=== PATIENT | female | born 1940 | race Caucasian/White ===

== ENCOUNTER 2016-06-06 17:51 | Inpatient (IN) | payer MEDICARE ==
[~2016-06-06] VITALS: Ht 162.6 cm; Wt 93.6 kg
--- NOTE | ~2016-06-06 | EKG ---
[place], [place] ELECTROCARDIOGRAM REPORT NAME: CARROLL FOY UNIT #: [id number] ROOM: 529 DOCTOR: JOANN WHALEY MD BIRTHDATE: [birth year] DOS: 06/06/2016 TIME: 19:57. FINDINGS: 1. Sinus rhythm at rate of 85. 2. Baseline artifact. 3. Otherwise, normal EKG. JOANN WHALEY MD CM:EKGRPT:ELECTROCARDIOGRAM REPORT [id number] JOANN WHALEY MD
[~2016-06-06 17:51] MED LIST: ADVAIR 250/501 EA INH; ANTIVERT25 MG PO; ARICEPT10 M1 PO; ATIVAN1 MG PO; ATROVENT I0.5 MG/2.1; CIPRO500 MG PO; COMBIVENT1 ARO IH; DOXYCYCLINE100 M3 PO; FISH OIL 1,0001 EAC1 PO; K-DUR 20MEQ20 MEQ PO; LASIX20 MG PO; LASIX40 MG PO; LIPITOR20 MG PO; LIPITOR40 MG PO; LOPRESSOR25 MG PO; LUTEIN6 M2 PO; MEDROL DOSEPAK4 MG PO; METFORMIN500 MG PO; NAMENDA5 M1 PO; OMEPRAZOLE20 M2 PO; POTASSIUM CHLO10 MEQ PO; PREDNICOT10 MG PO; REQUIP0.5 MG PO; REQUIP2 MG PO; SYNTHROID0.025 MG PO; Synthroid,Lev150 MCG PO; TEMAZEPAM15 MG PO; TRICOR54 MG PO; TRICOR67 MG PO; VICODIN 5/500 505 MG PO; ZANTAC150 MG PO; ZITHROMAX250 MG PO
[2016-06-06 18:12] VITALS: BP 135/70
[2016-06-06] MEDS ORDERED: LOPRESSOR50 M1 PO (18:21)
[2016-06-06] MEDS ORDERED: RISPERDAL1 M1 PO (18:23)
[2016-06-06 20:03] LABS: BASO # 0.1 10*3/uL (0.0-0.1); BASO % 0.4 % (0.0-1.0); EOS # 0.2 10*3/uL (0.0-0.4); EOS % 2.1 % (1.0-4.0); HEMATOCRIT 36.1 % (37.0-47.0); HEMOGLOBIN 11.3 g/dl (12.0-16.0); LYMPH # 2.4 10*3/uL (1.3-4.4); LYMPH % 21.4 % (27.0-41.0); MEAN CORPUSCULAR HGB 27.2 pg (27.0-31.0); MEAN CORPUSCULAR HGB CONC 31.3 g/dl (33.0-37.0); MEAN PLATELET VOLUME 10.9 fl (9.6-12.3); MONO # 0.9 10*3/uL (0.1-1.0); MONO % 7.9 % (3.0-9.0); NEUT # 7.6 10*3/uL (2.3-7.9); NEUT % 67.8 % (47.0-73.0); PLATELET COUNT AUTOMATED 245 10*3/uL (130-400); RED BLOOD COUNT 4.15 10*6/uL (4.10-5.10); RED CELL DISTRI WIDTH 14.5 % (0-14.5); WHITE BLOOD COUNT 11.2 10*3/uL (4.8-10.8)
[2016-06-06 20:18] LABS: INTERNATIONAL NORM RATIO 1.1 (2.0-3.5); PROTHROMBIN TIME 11.6 SECONDS (9.0-12.4)
[2016-06-06 20:20] VITALS: BP 128/54
[2016-06-06 20:23] LABS: ALBUMIN 3.1 gm/dl (3.1-4.5); ALKALINE PHOSPHATASE 101 U/L (45-117); BILIRUBIN, TOTAL 0.4 mg/dl (0.2-1.0); BUN 24 mg/dl (7-24); CARBON DIOXIDE 30 mmol/L (21-32); CHLORIDE 101 mmol/L (98-107); EST GLOM FILT AFRICAN AMERICAN > 60 ml/min; GLUCOSE 90 mg/dL (65-99); MAGNESIUM 1.5 mg/dL (1.5-2.1); POTASSIUM 4.2 mmol/L (3.5-5.1); SGOT/AST 8 IU/L (3-35); SGPT/ALT 15 U/L (12-78); SODIUM 141 mmol/L (136-145); TOTAL PROTEIN 6.9 gm/dL (6.4-8.2)
[2016-06-06 20:30] LABS: TROPONIN I < 0.015 ng/ml (<0.045)
[2016-06-07] VITALS: BP 115/57; BP 134/67
[2016-06-07 00:46] LABS: CKMB 0.9 ng/ml (0.5-3.6); CPK 31 U/L (26-192)
[2016-06-07 00:47] LABS: TROPONIN I < 0.015 ng/ml (<0.045)
[2016-06-07 06:28] LABS: BASO % 0.3 % (0.0-1.0); EOS % 0.3 % (1.0-4.0); HEMATOCRIT 37.8 % (37.0-47.0); HEMOGLOBIN 11.7 g/dl (12.0-16.0); IG # 0.1 10*3/uL (0.0-0.1); LYMPH % 10.5 % (27.0-41.0); MEAN CELL VOLUME 86.3 fl (81.0-99.0); MEAN CORPUSCULAR HGB 26.7 pg (27.0-31.0); MEAN PLATELET VOLUME 11.3 fl (9.6-12.3); MONO # 0.1 10*3/uL (0.1-1.0); MONO % 1.4 % (3.0-9.0); NEUT # 8.1 10*3/uL (2.3-7.9); NEUT % 86.9 % (47.0-73.0); PLATELET COUNT AUTOMATED 248 10*3/uL (130-400); RED BLOOD COUNT 4.38 10*6/uL (4.10-5.10); RED CELL DISTRI WIDTH 14.6 % (0-14.5); WHITE BLOOD COUNT 9.3 10*3/uL (4.8-10.8)
[2016-06-07 06:43] LABS: CKMB 1.3 ng/ml (0.5-3.6); CPK 27 U/L (26-192)
[2016-06-07 06:45] LABS: TROPONIN I < 0.015 ng/ml (<0.045)
[2016-06-07 06:46] LABS: HEMOGLOBIN A1c 6.2 % (4.8-5.6)
[2016-06-07 06:57] LABS: INTERNATIONAL NORM RATIO 1.1 (2.0-3.5); PROTHROMBIN TIME 11.7 SECONDS (9.0-12.4)
[2016-06-07 07:01] LABS: ALBUMIN 3.1 gm/dl (3.1-4.5); BUN 19 mg/dl (7-24); CARBON DIOXIDE 29 mmol/L (21-32); CHLORIDE 103 mmol/L (98-107); EST GLOM FILT AFRICAN AMERICAN > 60 ml/min; GLUCOSE 137 mg/dL (65-99); MAGNESIUM 1.6 mg/dL (1.5-2.1); POTASSIUM 3.8 mmol/L (3.5-5.1); SGPT/ALT 13 U/L (12-78); SODIUM 141 mmol/L (136-145)
[2016-06-07 07:09] LABS: ALKALINE PHOSPHATASE 104 U/L (45-117); BILIRUBIN, TOTAL 0.6 mg/dl (0.2-1.0); CHOLESTEROL 139 mg/dL (<200); FREE T4 1.62 ng/dl (0.76-1.46); HDL CHOLESTEROL 48 mg/dl (40-60); LDL CHOLESTEROL 71 mg/dL (9-159); PHOSPHOROUS 3.5 mg/dL (2.5-4.9); SGOT/AST 7 IU/L (3-35); THYROID STIM HORMONE (HS) 0.573 uIU/ml (0.358-4.75); TOTAL PROTEIN 7.1 gm/dL (6.4-8.2); TRIGLYCERIDES 101 mg/dl (<150); VLDL CHOLESTEROL 20 mg/dL (6-40)
[2016-06-07 07:34] LABS: VITAMIN D, 25-HYDROXY 53.7 ng/mL (30-100)
[2016-06-07 07:35] LABS: FOLIC ACID 8.03 ng/mL (>5.38)
[2016-06-07 08:00] VITALS: BP 130/62
[2016-06-07 12:00] VITALS: BP 139/72
[2016-06-07 12:29] LABS: CKMB 0.9 ng/ml (0.5-3.6); CPK 30 U/L (26-192); TROPONIN I < 0.015 ng/ml (<0.045)
[2016-06-07 16:00] VITALS: BP 117/86
[2016-06-07 16:27] LABS: BILIRUBIN NEGATIVE (NEGATIVE); BLOOD TRACE-INTACT (NEGATIVE); CLARITY SL CLOUDY (CLEAR); COLOR YELLOW (YELLOW); GLUCOSE 1+ (NEGATIVE); KETONE NEGATIVE (NEGATIVE); LEUKO ESTERASE TRACE (NEGATIVE); NITRITE NEGATIVE (NEGATIVE); PH 5.5 (5.0-9.0); PROTEIN NEGATIVE (NEGATIVE); SPECIFIC GRAVITY 1.025 (1.005-1.030); UROBILINOGEN 0.2 E.U./dl (0.2-1.0)
[2016-06-07 16:32] LABS: BACTERIA 2+; RBC 0-2 rbc/hpf (0-2); URINE REFLEX COMMENT YES (NO)
[2016-06-07 20:00] VITALS: BP 151/81
[2016-06-08] VITALS: BP 125/67
[2016-06-08 06:57] LABS: BASO % 0.1 % (0.0-1.0); HEMATOCRIT 38.2 % (37.0-47.0); HEMOGLOBIN 12.2 g/dl (12.0-16.0); IG # 0.1 10*3/uL (0.0-0.1); LYMPH # 1.4 10*3/uL (1.3-4.4); LYMPH % 9.7 % (27.0-41.0); MEAN CELL VOLUME 84.9 fl (81.0-99.0); MEAN CORPUSCULAR HGB 27.1 pg (27.0-31.0); MEAN CORPUSCULAR HGB CONC 31.9 g/dl (33.0-37.0); MEAN PLATELET VOLUME 11.3 fl (9.6-12.3); MONO # 0.6 10*3/uL (0.1-1.0); MONO % 4.4 % (3.0-9.0); NEUT # 12.1 10*3/uL (2.3-7.9); NEUT % 85.4 % (47.0-73.0); PLATELET COUNT AUTOMATED 270 10*3/uL (130-400); RED CELL DISTRI WIDTH 14.5 % (0-14.5); WHITE BLOOD COUNT 14.2 10*3/uL (4.8-10.8)
[2016-06-08 07:10] LABS: BUN 17 mg/dl (7-24); CARBON DIOXIDE 27 mmol/L (21-32); CHLORIDE 105 mmol/L (98-107); EST GLOM FILT AFRICAN AMERICAN > 60 ml/min; GLUCOSE 145 mg/dL (65-99); MAGNESIUM 1.7 mg/dL (1.5-2.1); PHOSPHOROUS 3.7 mg/dL (2.5-4.9); POTASSIUM 4.2 mmol/L (3.5-5.1); SODIUM 141 mmol/L (136-145)
[2016-06-08 08:00] VITALS: BP 128/61
[2016-06-08 12:00] VITALS: BP 129/63
[2016-06-08 15:54] VITALS: BP 151/61
[2016-06-08 20:00] VITALS: BP 155/65
[2016-06-08 20:52] VITALS: BP 124/62
[2016-06-09] VITALS: BP 132/56
[2016-06-09 08:06] VITALS: BP 153/72
[2016-06-09 12:19] VITALS: BP 106/61
[2016-06-09] MEDS ORDERED: PREDNISONE50 MG PO (15:23)
[2016-06-09] MEDS ORDERED: LEVAQUIN500 M2 PO (15:23)
[2016-06-09] MEDS ORDERED: DOXYCYCLINE100 MG PO (15:25)
[2016-06-09 16:00] VITALS: BP 133/59
== END 2016-06-09 17:21 | disposition home or self-care (01) | DRG 871 ==
LOC: 5E 17:51
PROVIDERS: Hospitalist; Internal Medicine
DX: A41.9 Sepsis, unspecified organism (principal); J96.20 Acute and chronic respiratory failure, unspecified whether with hypoxia or hypercapnia; E44.0 Moderate protein-calorie malnutrition; J44.1 Chronic obstructive pulmonary disease with (acute) exacerbation; L03.116 Cellulitis of left lower limb; I50.9 Heart failure, unspecified; F03.90 Unspecified dementia, unspecified severity, without behavioral disturbance, psychotic disturbance, mood disturbance, and anxiety; E03.9 Hypothyroidism, unspecified; K21.9 Gastro-esophageal reflux disease without esophagitis; E78.5 Hyperlipidemia, unspecified; H91.93 Unspecified hearing loss, bilateral; Z98.49 Cataract extraction status, unspecified eye; Z87.891 Personal history of nicotine dependence; Z80.0 Family history of malignant neoplasm of digestive organs; Z88.2 Allergy status to sulfonamides; Z79.84 Long term (current) use of oral hypoglycemic drugs; Z79.899 Other long term (current) drug therapy; Z68.35 Body mass index [BMI] 35.0-35.9, adult

== ENCOUNTER 2016-07-10 17:23 | Inpatient (IN) | payer MEDICARE ==
[~2016-07-10] VITALS: Ht 154.9 cm; Wt 87.3 kg
--- NOTE | ~2016-07-10 | PR ---
[place], [place] PROGRESS NOTE NAME: CARROLL FOY [facility] #: [id number] UNIT #: [id number] ROOM: 403 DOCTOR: POONAM GRIFFIN MD,SADIE BIRTHDATE: [birth year] DOS: 07/13/2016 SUBJECTIVE: She was complaining of shortness of breath this morning, but otherwise doing better. The ultrasound of the lower extremity to rule out possibility of bilateral deep venous thrombosis. She was continued on corticosteroids, bronchodilators, and the treatment plan and management. OBJECTIVE: VITAL SIGNS: Shows normal temperature, respiratory rate 20, heart rate 99, blood pressure 151/85, pulse ox saturation on 2 liters nasal cannula 96% saturation. HEENT: Examination shows chronic senile hard of hearing and hearing loss of the patient. LUNGS: Chest auscultation of the patient was noted as moderate reduction in the breath sounds. There was no wheezing at this time. ABDOMEN: Soft, nontender. EXTREMITIES: Shows resolving edema of the lower extremities. LABORATORY DATA: BMP this morning, BUN 39, creatinine was normal, glucose 137. CO2 36. IMPRESSION: 1. The patient with resolving acute cor pulmonale of the patient with acute exacerbation of COPD with acute tracheobronchitis. 2. History of nicotine abuse. PLAN OF TREATMENT: No changes in plan of management. The patient might be considered for discharge to long term facility tomorrow. In the meantime, continue the present treatment, plan of management without any changes. Usual care. All other supportive therapy care and management. SADIE LEVIN MD CM:PNTRANS [id number] SADIE GRIFFIN MD 07/14/16309 interface
--- NOTE | ~2016-07-10 | PR ---
[place], [place] PROGRESS NOTE NAME: CARROLL FOY UNIT #: [id number] ROOM: 403 DOCTOR: SADIE HEREDIA MD BIRTHDATE: [birth year] DOS: 07/14/2016 SUBJECTIVE: She has been showing continued gradual reduction and improvement in the respiratory status. She has not been noted any symptoms of chest pain or any abdominal pain. The edema of the lower extremity has been resolving. Cough, shortness breath and the other symptoms of the patient was resolving progressively as well. OBJECTIVE: VITAL SIGNS: For the patient which has been recorded shows the temperature of the patient noted as normal. The respiratory rate of the patient recorded at 22, heart rate 92, blood pressure 127/54-139/75. Intake of the patient 1010, the output 856 mL. Pulse oxygen saturation of the patient recorded on 3 liters nasal cannula 94% saturation. HEENT: Shows head was atraumatic. Eyes nonicterus. NECK: Supple. CARDIOVASCULAR SYSTEM: S1, S2 audible. LUNGS: The patient was noted without any wheezing or crackles at the present time. ABDOMEN: Soft, nontender. The bowel sounds are present. EXTREMITIES: The patient shows continued resolving edema of the lower extremities. LABORATORY DATA: The BMP of patient this morning showed BUN 52, creatinine 1.03. Sodium 167. Glucose 167. Carbon dioxide 33. IMPRESSION: Progressive resolution improvement of the respiratory status. The patient was continued with resolving acute exacerbation of chronic obstructive pulmonary disease, acute cor pulmonale progressively as well. PLAN OF TREATMENT: The patient has been currently considered for discharge to the [facility] for the patient. Other treatment plan of management to be continued as well. Usual care. [place], [place] PROGRESS NOTE NAME: CARROLL FOY UNIT #: [id number] ROOM: 403 DOCTOR: SADIE HEREDIA MD BIRTHDATE: [birth year] SADIE LEVIN MD CM:PNTRANS [phone] [id number] SADIE GRIFFIN MD 07/14/162120 interface
--- NOTE | ~2016-07-10 | PR ---
[place], [place] PROGRESS NOTE NAME: CARROLL FOY [facility] #: [id number] UNIT #: [id number] ROOM: 403 DOCTOR: POONAM GRIFFIN MD,SADIE BIRTHDATE: [birth year] DOS: 07/12/2016 PULMONARY PROGRESS NOTE SUBJECTIVE: She continues to show reduction in the respiratory symptoms has been noted with resolution of audible wheezing. Shortness of breath for the patient has been decreasing. Edema of the lower extremity has been resolving, but not completely improved. The patient is getting physical therapy. OBJECTIVE: VITAL SIGNS: Showed normal temperature, respiratory rate 18, heart rate 97, blood pressure 110/67. Intake for the patient was 1800 mL, output 1200 mL recorded without Porter catheter. Pulse ox saturation on 2 liters nasal cannula 93% saturation was noted. HEENT: Examination shows no acute change. CARDIOVASCULAR SYSTEM: S1, S2 audible. LUNGS: Shows moderate decreased breath sounds and improvement in air entry of the lungs. ABDOMEN: Soft, nontender. EXTREMITIES: Shows reduction of the edema of the right lower extremity, still noted with vmyn-rz-[id number] edema of the left lower extremity. IMPRESSION: The patient with resolving acute exacerbation of chronic obstructive pulmonary disease with acute tracheobronchitis as well as suspected acute cor pulmonale; however, edema of the lower extremity noted asymmetrical with partial improvement noted on the left side of the lower extremity. PLAN OF TREATMENT: Ordered the venous duplex for this patient to rule out deep venous thrombosis of the lower extremities. In the meantime, continue diuretics, bronchodilators, dose of Solu-Medrol will be decreased. Continue other previous treatment, plan and management as previously. Usual care. SADIE LEVIN MD CM:PNTRANS [phone] SAIDE GRIFFIN MD 07/12/162245 interface
--- NOTE | ~2016-07-10 | CON ---
[place], [place] REPORT OF CONSULTATION NAME: CARROLL FOY [facility] #: [id number] UNIT #: [id number] ROOM: 403 DOCTOR: POONAM GRIFFIN MDSADIE BIRTHDATE: [birth year] DOS: 07/11/2016 REASON FOR CONSULTATION: To assess the patient's symptoms of shortness of breath. REQUESTING PHYSICIAN: Hospitalist services. HISTORY OF PRESENT ILLNESS: A 75-year-old white female who was seen in my office yesterday for the first time. The patient was in the office by her daughter. The patient noted with significant hard of hearing. She reported symptoms of having progressive increased shortness of breath with nonproductive cough. The patient had feeling of lightheadedness. The patient had edema of the lower extremities. The symptoms have been noted gradually worsening for the past several days. The patient has been hospitalized in 05/2016 and treated for respiratory problems and released home. She was getting home physical therapy. The patient stated the symptoms have not been improving. The patient at this time was actually getting worse, she could not lay flat. The patient also noted symptoms of orthopnea. There were no symptoms of chest pain, chest tightness was described. The coughing has been noted mild to moderately. The cough that the patient was noted was worsening in the evening. She denies symptoms of hemoptysis. REVIEW OF SYSTEMS: CONSTITUTIONAL: She does complain of symptoms of fatigue and tiredness. Denies fever or chills. EYES: Denies burning, redness or tenderness. EARS, NOSE, AND THROAT SYMPTOMS: Chronic pain and hearing loss were noted. The patient refused to use hearing aids. Denies symptoms of postnasal drainage, nasal congestion or epistaxis. CARDIOVASCULAR: Denies any anginal pain, palpitations or angina. She was noted with intermittent edema of the lower extremities. GASTROINTESTINAL: History of chronic obesity was noted without any symptoms of hematemesis, melena, dysphagia or hematochezia. GENITOURINARY: Denies dysuria, suprapubic pain, hematuria or urinary incontinence. SKIN: Denies lesions or rashes. MUSCULOSKELETAL: Denies acute joint pain, redness or tenderness. CENTRAL NERVOUS SYSTEM: Denies dizziness, headache, diplopia or syncopal episodes. Remaining systems were reviewed with the patient, they were noted all negative. PAST MEDICAL HISTORY: 1. Centrilobular emphysema. 2. Vitamin D deficiency. 3. Moderate obesity with the patient's BMI of 38. 4. Chronic senile hearing loss. 5. Alzheimer dementia. 6. History of gastroesophageal reflux. 7. Restless leg syndrome. 8. Hypothyroidism. [place], [place] REPORT OF CONSULTATION [facility] [id number] UNIT #: [id number] ROOM: 403 DOCTOR: SADIE HEREDIA MD BIRTHDATE: [birth year] SOCIAL HISTORY: The patient is , has 3 children. She has been noted to have heavy tobacco use and smoked up to 3 packs of cigarettes a day, started at the age of [age] years old. She has not been smoking cigarettes since 05/2016. Denies history of alcohol use or any illicit drug use. FAMILY HISTORY: The patient's father at the age of 8383 years old from complication of colon cancer. The mother at the age of 8888 years old from old age. CURRENT ADMINISTERED MEDICATIONS: Noted as use of IV Lasix, vitamin D, Namenda, potassium chloride, levothyroxine, metformin, Risperdal, metoprolol tartrate, Requip, Mucinex, IV Solu-Medrol, DuoNeb, Dulera, Levaquin and other p.r.n. medications. ALLERGIES: THE DRUG ALLERGY HISTORY WAS NOTED ALLERGY TO SULFA DRUGS. THE PATIENT STATED SIDE EFFECTS, IT MADE HER CRAZY. PHYSICAL EXAMINATION: GENERAL: A 75-year-old female, who has been currently noted awake and alert without any distress. VITAL SIGNS: Height of 5 feet 1 inch, weight of 201 pounds, BMI of 37.8. Vital signs show a normal temperature, respiratory rate 20-18, heart rate 73-106, blood pressure 147/52-134/67. The intake of patient 630, output 200 mL recorded. Pulse oxygen saturation on room air was 92% on 2 liters nasal cannula, 96% saturation. HEENT: Head was atraumatic. Eyes nonicterus. NECK: Supple and obese. CARDIOVASCULAR: S1, S2 audible. LUNGS: The patient was noted without any crackles. Decreased breath sounds are noted diminished bilaterally, expiratory wheezing. ABDOMEN: Soft, obese, nontender. EXTREMITIES: Shows 1+ pitting edema this morning of assessment. LABORATORY DATA: CBC, 07/10/2016 yesterday were noted essentially normal CBC. The PT/PTT on 07/10/2016 was normal. CMP, 07/10/2016, BUN 26, creatinine was normal, glucose 184. The liver function tests were normal. TSH was normal. Chest x-ray that was done in my office yesterday shows hyperinflation changes of COPD without any acute pulmonary infiltration. IMPRESSION: 1. The patient with recurrent acute exacerbation. 2. Chronic obstructive pulmonary disease. 3. Acute tracheobronchitis with possibility of acute ____ edema of the lower extremities. 4. History of chronic moderate obesity. 5. Senile hearing loss. 6. Muscle deconditioning secondary to ongoing acute medical illnesses. PLAN OF TREATMENT: The patient will be continued on IV diuretics. The [place], [place] REPORT OF CONSULTATION NAME: CARROLL FOY UNIT #: [id number] ROOM: 403 DOCTOR: SADIE HEREDIA MD BIRTHDATE: [birth year] echocardiogram could be repeated for assessment of the patient's right ventricular function. Continue current dose of IV Solu-Medrol and bronchodilators administration. Antibiotics to be continued as well. Usual care. Further treatment changes will be made for the patient based on progression of the illness. Physical therapy and occupation therapy consultation has been ordered as well. Other plan of management is in progress. Usual care. The patient has been encouraged with continued abstinence from tobacco use. SADIE LEVIN MD CM:CONSTR:REPORT OF CONSULTATION 1211 07/12/16 1438 interface
--- NOTE | ~2016-07-10 | PR ---
[place], [place] PROGRESS NOTE NAME: CARROLL FOY [facility] #: [id number] UNIT #: [id number] ROOM: 403 DOCTOR: POONAM GRIFFIN MD,SADIE BIRTHDATE: [birth year] DOS: 07/15/2016 SUBJECTIVE: She has been comfortably resting on the bed without any acute distress. OBJECTIVE: VITAL SIGNS: Shows normal temperature, respiratory rate 20, heart rate 94, blood pressure 129/71. Vital signs of the patient which were recorded showed the temperature of the patient noted as normal. The respiratory rate of the patient recorded as 20, heart rate 94, blood pressure 129/71. Pulse oxygen saturation on 3 liters nasal cannula 96% saturation. HEENT: No new change. CARDIOVASCULAR: S1, S2 audible. LUNGS: The patient shows no wheezing or crackles. ABDOMEN: Soft, nontender. EXTREMITIES: Shows resolution of edema. LABORATORY DATA: BMP today, sodium 135, BUN 53, creatinine was normal. IMPRESSION: Stable respiratory status was noted at the present time with resolving acute exacerbation of chronic obstructive pulmonary disease, acute tracheobronchitis progressively. PLAN OF TREATMENT: No changes in plan of management. Continue the patient on current therapy as previously. Usual care. Supportive plan and management and care. SADIE LEVIN MD CM:PNTRANS 1624 [id number] SADIE GRIFFIN MD 07/16/16 0514 interface
[~2016-07-10 17:23] MED LIST changes: +DOXYCYCLINE100 MG PO; +LEVAQUIN500 M2 PO; +LOPRESSOR50 M1 PO; +PREDNISONE50 MG PO; +RISPERDAL1 M1 PO
[2016-07-10 18:00] VITALS: BP 147/52
[2016-07-10 18:08] LABS: BASO % 0.4 % (0.0-1.0); EOS # 0.3 10*3/uL (0.0-0.4); EOS % 2.7 % (1.0-4.0); HEMATOCRIT 39.4 % (37.0-47.0); HEMOGLOBIN 12.4 g/dl (12.0-16.0); LYMPH # 1.9 10*3/uL (1.3-4.4); LYMPH % 20.4 % (27.0-41.0); MEAN CELL VOLUME 86.8 fl (81.0-99.0); MEAN CORPUSCULAR HGB 27.3 pg (27.0-31.0); MEAN CORPUSCULAR HGB CONC 31.5 g/dl (33.0-37.0); MEAN PLATELET VOLUME 11.3 fl (9.6-12.3); MONO # 0.6 10*3/uL (0.1-1.0); MONO % 6.1 % (3.0-9.0); NEUT # 6.6 10*3/uL (2.3-7.9); PLATELET COUNT AUTOMATED 264 10*3/uL (130-400); RED BLOOD COUNT 4.54 10*6/uL (4.10-5.10); RED CELL DISTRI WIDTH 15.7 % (0-14.5); WHITE BLOOD COUNT 9.4 10*3/uL (4.8-10.8)
[2016-07-10 18:17] LABS: PROTHROMBIN TIME 11.1 SECONDS (9.0-12.4)
[2016-07-10 18:26] LABS: ALBUMIN 3.1 gm/dl (3.1-4.5); ALKALINE PHOSPHATASE 103 U/L (45-117); BILIRUBIN, TOTAL 0.4 mg/dl (0.2-1.0); BUN 26 mg/dl (7-24); CARBON DIOXIDE 27 mmol/L (21-32); CHLORIDE 104 mmol/L (98-107); CHOLESTEROL 149 mg/dL (<200); EST GLOM FILT AFRICAN AMERICAN > 60 ml/min; GLUCOSE 184 mg/dL (65-99); HDL CHOLESTEROL 50 mg/dl (40-60); LDL CHOLESTEROL 52 mg/dL (9-159); MAGNESIUM 1.4 mg/dL (1.5-2.1); PHOSPHOROUS 2.6 mg/dL (2.5-4.9); POTASSIUM 4.1 mmol/L (3.5-5.1); SGOT/AST 13 IU/L (3-35); SGPT/ALT 16 U/L (12-78); SODIUM 142 mmol/L (136-145); TOTAL PROTEIN 6.9 gm/dL (6.4-8.2); TRIGLYCERIDES 236 mg/dl (<150); VLDL CHOLESTEROL 47 mg/dL (6-40)
[2016-07-10 18:29] LABS: HEMOGLOBIN A1c 6.5 % (4.8-5.6)
[2016-07-10 18:30] LABS: FREE T4 1.39 ng/dl (0.76-1.46)
[2016-07-10 18:49] LABS: FOLIC ACID 9.5 ng/mL (>5.38); VITAMIN D, 25-HYDROXY 39.1 ng/mL (30-100)
[2016-07-10] MEDS ORDERED: ATROVENT I0.5 MG/2.1 INH (18:52)
[2016-07-10] MEDS ORDERED: VITAMIN D5000 I3 PO (18:53)
[2016-07-10] MEDS ORDERED: COMBIVENT RESPIM4 GM INH (18:53)
[2016-07-10] MEDS ORDERED: GOOD NEIGHBOR150 MG PO (18:53)
[2016-07-10] MEDS ORDERED: ADVAIR 250/501 EA INH (18:54)
[2016-07-10 20:00] VITALS: BP 135/135; BP 135/75
[2016-07-11 00:33] VITALS: BP 149/84
[2016-07-11 08:00] VITALS: BP 134/67
[2016-07-11 12:00] VITALS: BP 146/69
[2016-07-11 16:00] VITALS: BP 129/70
[2016-07-11 20:00] VITALS: BP 130/69
[2016-07-11 23:59] VITALS: BP 134/80
[2016-07-12 08:00] VITALS: BP 109/67
[2016-07-12 12:00] VITALS: BP 110/67
[2016-07-12 16:00] VITALS: BP 114/58
[2016-07-12 20:03] VITALS: BP 142/68
[2016-07-13] VITALS: BP 155/84
[2016-07-13 06:25] LABS: BUN 39 mg/dl (7-24); CARBON DIOXIDE 36 mmol/L (21-32); CHLORIDE 97 mmol/L (98-107); EST GLOM FILT AFRICAN AMERICAN > 60 ml/min; GLUCOSE 137 mg/dL (65-99); MAGNESIUM 1.5 mg/dL (1.5-2.1); POTASSIUM 4.4 mmol/L (3.5-5.1); SODIUM 137 mmol/L (136-145)
[2016-07-13 08:00] VITALS: BP 125/55
[2016-07-13 12:00] VITALS: BP 151/85
[2016-07-13 16:00] VITALS: BP 134/62
[2016-07-13 20:00] VITALS: BP 150/85
[2016-07-14] VITALS: BP 131/77
[2016-07-14 08:00] VITALS: BP 139/75
[2016-07-14 08:35] LABS: BUN 52 mg/dl (7-24); CARBON DIOXIDE 33 mmol/L (21-32); CHLORIDE 96 mmol/L (98-107); EST GLOM FILT AFRICAN AMERICAN > 60 ml/min; GLUCOSE 167 mg/dL (65-99); POTASSIUM 4.8 mmol/L (3.5-5.1); SODIUM 137 mmol/L (136-145)
[2016-07-14 12:00] VITALS: BP 127/54
[2016-07-14] MEDS ORDERED: MUCINEX ER600 MG PO (15:41)
[2016-07-14] MEDS ORDERED: PREDNISONE10 MG PO (15:41)
[2016-07-14] MEDS ORDERED: LEVAQUIN500 M2 PO (15:41)
[2016-07-14 16:00] VITALS: BP 142/78
[2016-07-14 20:00] VITALS: BP 145/66
[2016-07-15] VITALS: BP 151/86
[2016-07-15 07:38] LABS: BUN 53 mg/dl (7-24); CARBON DIOXIDE 32 mmol/L (21-32); CHLORIDE 95 mmol/L (98-107); EST GLOM FILT AFRICAN AMERICAN > 60 ml/min; GLUCOSE 152 mg/dL (65-99); POTASSIUM 4.6 mmol/L (3.5-5.1); SODIUM 135 mmol/L (136-145)
[2016-07-15 08:00] VITALS: BP 155/69
[2016-07-15 12:00] VITALS: BP 129/71
== END 2016-07-15 15:45 | disposition other institution (70) | DRG 190 ==
LOC: 4E 17:23
PROVIDERS: Internal Medicine; Student in an Organized Health Care Education/Training Program
DX: J44.0 Chronic obstructive pulmonary disease with (acute) lower respiratory infection (principal); J18.9 Pneumonia, unspecified organism; E44.0 Moderate protein-calorie malnutrition; I27.81 Cor pulmonale (chronic); I50.9 Heart failure, unspecified; G30.9 Alzheimer's disease, unspecified; E83.42 Hypomagnesemia; F02.80 Dementia in other diseases classified elsewhere, unspecified severity, without behavioral disturbance, psychotic disturbance, mood disturbance, and anxiety; J44.1 Chronic obstructive pulmonary disease with (acute) exacerbation; R73.9 Hyperglycemia, unspecified; E66.09 Other obesity due to excess calories; J20.9 Acute bronchitis, unspecified; H91.8X9 Other specified hearing loss, unspecified ear; E03.9 Hypothyroidism, unspecified; K21.9 Gastro-esophageal reflux disease without esophagitis; E78.5 Hyperlipidemia, unspecified; F17.200 Nicotine dependence, unspecified, uncomplicated; Z98.49 Cataract extraction status, unspecified eye; Z80.0 Family history of malignant neoplasm of digestive organs; Z88.2 Allergy status to sulfonamides; Z79.84 Long term (current) use of oral hypoglycemic drugs; Z71.6 Tobacco abuse counseling; Z79.899 Other long term (current) drug therapy; Z68.37 Body mass index [BMI] 37.0-37.9, adult

== ENCOUNTER 2016-07-16 11:42 | Inpatient (IN) | payer MEDICARE ==
[~2016-07-16] VITALS: Ht 160 cm; Wt 86.3 kg
--- NOTE | ~2016-07-16 | PR ---
[place], [place] PROGRESS NOTE NAME: CARROLL FOY [facility] #: [id number] UNIT #: [id number] ROOM: 406 DOCTOR: POONAM GRIFFIN MD,SADIE BIRTHDATE: [birth year] DOS: 07/24/2016 SUBJECTIVE: The patient stated that she has been eating food was not noted any abdominal pain. Respiratory symptoms continue to resolve. Denies symptoms of chest pain or any sputum expectoration. OBJECTIVE: VITAL SIGNS: Showed normal temperature, respiratory rate of 20, heart rate 79, blood pressure 126/66. Pulse oxygen saturation of the patient noted 2 liters nasal cannula 96% saturation. HEENT: Examination shows no acute change. NECK: Supple. CARDIOVASCULAR: S1, S2 audible. LUNGS: Shows no wheeze or crackles at the present time. ABDOMEN: Soft, nontender. IMPRESSION: 1. Resolving acute exacerbation of chronic obstructive pulmonary disease for this patient progressively patient. 2. Abdominal pain for this patient of unclear etiology but improving. 3. History of cor pulmonale. PLAN OF TREATMENT: Continue the patient's current therapy, plan of management as in progress without any changes from the pulmonary point. Discharge planning for the patient has been started at this time. SADIE LEVIN MD CM:PNTRANS 0 33 SADIE GRIFFIN MD 07/24/161933 interface
--- NOTE | ~2016-07-16 | PR ---
[place], [place] PROGRESS NOTE NAME: CARROLL FOY [facility] #: [id number] UNIT #: [id number] ROOM: 406 DOCTOR: POONAM GRIFFIN MD,SADIE BIRTHDATE: [birth year] DOS: 07/20/2016 SUBJECTIVE: She has been noted comfortably resting on the bed at this time. Denies symptoms of chest pain, coughing or any sputum expectoration. OBJECTIVE: VITAL SIGNS: Normal temperature, respiratory rate 20, heart rate 82, blood pressure 145/74. The pulse oxygen saturation of the patient noted on 3 L nasal cannula 93% saturation. HEENT: Showed no new change. NECK: Supple. CARDIOVASCULAR: S1, S2 audible. LUNGS: Noted without any wheeze or crackles at the present time. Breath sounds with [id number]-[id number] decreased bilaterally. ABDOMEN: Soft, nontender. EXTREMITIES: Shows no significant edema at this time. IMPRESSION: 1. Progressive resolution improvement in the acute exacerbation of chronic obstructive pulmonary disease, acute tracheobronchitis noted. 2. Overall debility. The patient was treated with physical therapy and occupation therapy. PLAN OF MANAGEMENT: No changes from the pulmonary standpoint. Continue current therapy. Discharge disposition per family member of the patient's preference. SADIE LEVIN MD CM:PNTRANS [id number] SADIE GRIFFIN MD 07/21/16 0543 interface
--- NOTE | ~2016-07-16 | CON ---
[place], [place] REPORT OF CONSULTATION NAME: CARROLL FOY [facility] #: [id number] UNIT #: [id number] ROOM: 406 DOCTOR: POONAM GRIFFIN MDSADIE BIRTHDATE: [birth year] DOS: 07/19/2016 REASON FOR CONSULTATION: Assess the patient for COPD. HISTORY OF PRESENT ILLNESS: A 75-year-old white male who had been discharged from this hospital after completion of the medical management of acute exacerbation of COPD and acute bronchitis to the nursing home facility. The patient was discharged from the nursing home facility on 07/16/2016. She returned back to the hospital as the patient was sent from the nursing facility, the patient has been noted with symptoms of abdominal pain. The abdominal pain has been noted worsening for the patient in the lower quadrants. The patient was also known with previous coughing and sputum expectoration intermittently as well as shortness of breath. She was assessed in the Emergency Room and suspected possibly urinary tract infection and other problems and also continued on treatment for acute exacerbation of COPD. The patient has not been noted symptoms of chest pain at this time. The coughing has been noted mild for this patient with small amount of sputum expectoration. Shortness of breath was noted absent with the patient at rest. There were no symptoms of wheezing described by the patient or any chest pain. REVIEW OF SYSTEMS: CONSTITUTIONAL: Fatigue and tiredness described for the patient, which is improving without any fever or chills. EYES: Denies any burning, redness or tenderness. EARS, NOSE, THROAT SYMPTOMS: No sore throat, hoarseness, otalgia, postnasal drainage or epistaxis. The patient has been noted with chronic moderate senile hearing loss. CARDIOVASCULAR: The patient denies any anginal pain, edema or pain of the lower extremities. GASTROINTESTINAL: Denied dysphagia, nausea, vomiting, diarrhea, abdominal pain, hematemesis, melena or hematochezia. Abdominal pain, which was previously noted is completely resolved at this time. MUSCULOSKELETAL: Denies any acute joint pain, redness or tenderness. SKIN: Denies lesions or rashes. CENTRAL NERVOUS SYSTEM: No dizziness, headache or diplopia. All the other systems for this patient had been reviewed with the patient and they were noted all negative. PAST MEDICAL HISTORY: The patient was known with history of: 1. Centrilobular emphysema. 2. Vitamin D deficiency. 3. Chronic moderate obesity, BMI of 38. 4. Chronic senile hearing loss. 5. Alzheimer dementia. 6. Gastroesophageal reflux. 7. Restless leg syndrome. 8. Hypothyroidism. 9. Chronic cor pulmonale. [place], [place] REPORT OF CONSULTATION NAME: CARROLL FOY UNIT #: [id number] ROOM: [facility] DOCTOR: POONAM GRIFFIN MD,SADIE BIRTHDATE: [birth year] SOCIAL HISTORY: The patient is , has 3 children. Denies history of alcohol or illicit drug use. Tobacco use noted since age of [age] years old, 3 pack of cigarettes per day until 05/2016. FAMILY HISTORY: The patient was noted father at age 8383 years old from complication of colon cancer. Mother at 88 years old from complications of old age. PAST SURGICAL HISTORY: 1. T and A. 2. Teeth extraction. 3. Bilateral cataract extraction and lens implantation. MEDICATIONS: Current administered medications were noted use of metoprolol tartrate, famotidine, vitamin D3, Namenda, potassium chloride, levothyroxine, Risperdal, Lovenox for DVT prophylaxis, IV Solu-Medrol 60 mg b.i.d., Mucinex, Rocephin, and Zithromax. DRUG ALLERGY HISTORY: The patient was noted as ALLERGIES TO SULFA DRUGS. PHYSICAL EXAMINATION: GENERAL: A 75-year-old white female who has been noted currently awake and alert without any distress. Height 5 feet 3 inches, weight of 196 pounds. The patient's BMI of 34.7. VITAL SIGNS: Shows normal temperature, respiratory rate 18-20, heart rate of 109-90, blood pressure 157/62-96/63. HEENT: Moderate senile hearing loss. Head was atraumatic. Eyes nonicterus. NECK: Supple. CARDIOVASCULAR: S1, S2 audible. LUNGS: The patient noted with [id number]-kn-otxmlctt decreased breath sounds noted in the lungs bilaterally. ABDOMEN: Noted with chronic obesity, it was nontender at this time. EXTREMITIES: Show no edema, clubbing or cyanosis. MUSCULOSKELETAL: No deformities. SKIN: Showed no lesions or rashes. CENTRAL NERVOUS SYSTEM: Cranial nerves 2-12 intact. LABORATORY DATA: CBC of the patient done on 07/16/2016, WBC count of 14.7, hemoglobin 14.8, hematocrit 46.6, platelet count 249,000, normal. Lactic acid 3.0 on admission. PT/PTT were normal of the patient on 07/16/2016. CMP of the patient 07/16/2016, BUN 65, creatinine 1.03, and carbon dioxide 35. CT scan of the abdomen and pelvis of the patient that was done 07/16/2016, radiologist report as chronic diverticulosis without any finding of diverticulitis, multilevel degenerative changes of the lumbar spine described. Chest x-ray of the patient that was done on this admission, 1 view, on 07/16/2016 was reviewed, showed no acute pulmonary infiltration. Urine culture noted 50,000 colony forming units of E. coli. of 07/18/2016, BUN 38, creatinine was normal. Blood culture for the patient from the 07/16/2016 shows no bacterial growth. CBC this morning, WBC count 15.4, hemoglobin 11.4, hematocrit 36.7, platelet count 186,000. BMP, BUN of 30, creatinine was normal, glucose of 136. [place], [place] REPORT OF CONSULTATION NAME: CARROLL FOY UNIT #: [id number] ROOM: 406 DOCTOR: SADIE HEREDIA MD BIRTHDATE: [birth year] IMPRESSION: 1. The patient who has been currently admitted to the hospital with abdominal pain for this patient with possible urinary tract infection. The patient with ongoing exacerbation of COPD responding to current treatment effectively. 2. History of chronic senile hearing loss for the patient. 3. History of Alzheimer disease, but still understands quite a bit of questions and answers questions appropriately. 4. Cor pulmonale for the patient, which has been noted chronic without any acute component. Complete resolution of previous edema of the lower extremities was noted. PLAN OF TREATMENT: The patient will be continued with current plan of management at this time except reduction of the corticosteroids, Solu-Medrol 40 mg daily with absence of any wheezing. Continue to monitor the patient's respiratory status, physical therapy, and other plan of management. Usual care. Further treatment for the patient could be done for this patient based on the symptoms changes. The patient will be started on the Dulera during this hospitalization. We will continue treatment for long-term management of COPD as well. The medication taken by the patient were noted nonformulary. Thank you for allowing me to participate in the care of this patient. SADIE LEVIN MD CM:CONSTR:REPORT OF CONSULTATION 1236 07/20/16 0705 interface
--- NOTE | ~2016-07-16 | PR ---
[place], [place] PROGRESS NOTE NAME: CARROLL FOY [facility] #: [id number] UNIT #: [id number] ROOM: 406 DOCTOR: POONAM GRIFFIN MD,SADIE BIRTHDATE: [birth year] DOS: 07/26/2016 PULMONARY PROGRESS NOTE SUBJECTIVE: She has been comfortably resting, sitting on the chair for this patient at this time. There were no symptoms of shortness breath, cough, sputum expectoration described. The patient continued to get physical therapy. OBJECTIVE: VITAL SIGNS: Showed normal temperature, respiratory rate 20, heart rate 83, blood pressure 138/80. The pulse oxygen saturation was noted on 3 liters nasal canula 94% saturation. HEENT: No acute change. NECK: Supple. CARDIOVASCULAR SYSTEM: S1, S2 audible. LUNGS: Noted without any wheeze or crackles. ABDOMEN: Soft, nontender. LABORATORY DATA: [facility], 07/26/2016, BUN 29, creatinine was normal. Carbon dioxide 37. CBC: WBC count 13.4. IMPRESSION: The patient has stable respiratory status, the patient is noted at the present time with improving acute exacerbation of chronic obstructive pulmonary disease and acute tracheobronchitis. PLAN OF TREATMENT: Continue current plan of management from the pulmonary standpoint. The patient has been currently assessed for GI problems and was planned for possibility of colonoscopy as well. Other supportive plan of therapy as previously in progress. The patient has been started on prednisone, which we will gradually taper off and discontinue. No changes from the pulmonary standpoint t will be necessary. SADIE LEVIN MD CM:PNTRANS [id number] SADIE GRIFFIN MD 07/26/16 2331 interface
--- NOTE | ~2016-07-16 | PR ---
[place], [place] PROGRESS NOTE NAME: CARROLL FOY UNIT #: [id number] ROOM: 406 DOCTOR: SADIE HEREDIA MD BIRTHDATE: [birth year] DOS: 07/27/2016 PULMONARY PROGRESS NOTE SUBJECTIVE: She has been comfortably resting stating the abdominal pain has been noted better. There was no shortness of breath, coughing, sputum expectoration or any chest pain. OBJECTIVE: VITAL SIGNS: For the patient which were recorded shows normal temperature, respiratory rate 22, heart rate of 103-94, blood pressure 130/78-132/68. Pulse oxygen saturation of the patient on 3 liter nasal cannula was 93% saturation this morning noted. HEENT: Showed no new change. NECK: Supple. CARDIOVASCULAR SYSTEM: S1, S2 is audible. LUNGS: The patient was noted clear for any wheezing or crackles. ABDOMEN: Soft, nontender. LABORATORY DATA: BMP today, carbon dioxide 34, remaining BMP grossly normal. Urinalysis of the patient that was done this morning was noted essentially normal. CBC this morning: WBC count 11.1, otherwise normal CBC noted. IMPRESSION: 1. The patient with resolving acute exacerbation of chronic obstructive pulmonary disease. 2. Abdominal pain for the patient. Etiology is currently being still investigated. 3. The patient with a senile hearing loss. 4. Overall severe debility. PLAN OF TREATMENT: No changes from the pulmonary standpoint in the treatment. Continuation of the current therapy, plan of management as previously. Usual care. Other supportive plan of management and care as in progress. [place], [place] PROGRESS NOTE NAME: CARROLL FOY UNIT #: [id number] ROOM: 406 DOCTOR: SADIE HEREDIA MD BIRTHDATE: [birth year] SADIE LEVIN MD CM:PNTRANS 8 SADIE GRIFFIN MD 07/28/169 interface
--- NOTE | ~2016-07-16 | PR ---
[place], [place] PROGRESS NOTE NAME: CARROLL FOY [facility] #: [id number] UNIT #: [id number] ROOM: 406 DOCTOR: POONAM GRIFFIN MD,SADIE BIRTHDATE: [birth year] DOS: 07/22/2016 SUBJECTIVE: The patient has been comfortably resting on the bed at this time without any distress. Denies symptoms of chest pain. The patient has not been noted any sputum expectoration started on oral Lasix yesterday. OBJECTIVE: VITAL SIGNS: For the patient which were recorded showed normal temperature, respiratory rate 22, heart rate 82, blood pressure 120/60. The pulse oxygen saturation for the patient recorded on 2 liters nasal cannula 96% saturation. HEENT: Chronic moderate senile hearing loss. NECK: Supple. CARDIOVASCULAR: S1, S2 audible. LUNGS: Without any wheeze or crackles. ABDOMEN: Soft, nontender. EXTREMITIES: Still shows mild edema. IMPRESSION: The patient with resolving acute exacerbation of chronic obstructive pulmonary disease, acute tracheobronchitis, edema of the lower extremity, history of cor pulmonale. Muscle deconditioning. PLAN OF TREATMENT: No changes from the pulmonary standpoint. Consider patient discharge home, most likely as the patient's family members does not wish the patient to go to senior living facility, possibly tomorrow. Other supportive plan and management to be continued. Usual care. SADIE LEVIN MD CM:PNTRANS 1329 SADIE GRIFFIN MD 07/22/16 2349 interface
--- NOTE | ~2016-07-16 | O ---
[place], [place] OPERATIVE NOTE NAME: CARROLL FOY [facility] #: [id number] UNIT #: [id number] ROOM: 406 DOCTOR: JARED CASTELLANOS MD BIRTHDATE: [birth year] DOS: A 75-year-old patient who has presented with chief complaint of constipation and underwent studies and was found to have proctitis suspected, she was tried to be convinced for colonic prep several times she has cancellation and we were finally able to proceed with a couple of enemas and CTs in search for etiology of proctitis was undertaken. The patient has been on multiple antibiotics however. PROCEDURE: Today's procedure part of investigation is flexible sigmoidoscopy. PREMEDICATION: Versed and Diprivan. SCOPE: Olympus forward-viewing colonoscope 10L video. REPORT: After putting the patient in left lateral position and after application of lubricant to rectal pouch and digital examination, scope was introduced. Thereafter, under direct visualization advanced through the length of rectal pouch. Evidence of solid stool impaction was noticed. However, the scope negotiated beyond some of the bulk of the stool and lavaged with water performed and since visualization decreased to approximately 5% we had to withdraw the scope. IMPRESSION: Retained stool, no evidence of proctitis. PLAN AND DISCUSSION: Supportive management. The patient is benefitting from chronic laxative therapy until marlene diarrhea and service. JARED CASTELLANOS MD CM:OPRECORD:OPERATIVE NOTE [id number] JARED CASTELLANOS MD 07/27/16 171 interface
--- NOTE | ~2016-07-16 | CON ---
[place], [place] REPORT OF CONSULTATION NAME: CARROLL FOY [facility] #: [id number] UNIT #: [id number] ROOM: 406 DOCTOR: JARED CASTELLANOS MD BIRTHDATE: [birth year] DOS: HISTORY OF PRESENT ILLNESS: This is a 75-year-old patient who presented with multiple medical issues, among which she has been not feeling well, in general complains shortness of breath as well. The patient has been managed by Pulmonary Medicine. The patient had urinary tract infection of 50,000 population. Her electrolytes were balanced. Blood cultures were negative. CBC differential: White blood cell was 15, H and H of 11 and 36, platelets 186. Her lactic acid was 1.9. CBC with differential was within normal limits. Comprehensive metabolic panel and electrolytes balanced. CT scan of the abdomen: No CT finding of abscess or intraperitoneal pathology. New wall thickening involving the rectum and adjacent infiltrative changes suggestive of proctitis according to the CT scan. However, no hematemesis, no hematochezia, no abdominal cramps. No diarrhea. PAST MEDICAL HISTORY: Associated obesity, hard of hearing, early Alzheimer, COPD, restless legs, hypothyroidism. PAST SURGICAL HISTORY: Teeth extraction, T and A and bilateral cataracts. FAMILY HISTORY: Noncontributory. Father with colon carcinoma at age 83. SOCIAL HISTORY: Nonsmoker, nonalcohol consumer. ALLERGIES: TO SULFA. MEDICATIONS: List has been reviewed. REVIEW OF SYSTEMS: In general, HEENT: Denies double vision, blurred vision. RESPIRATORY: Admits some shortness of breath. CARDIOVASCULAR: Denies chest pain. DIGESTIVE SYSTEM: No hematemesis, no hematochezia. PHYSICAL EXAMINATION: GENERAL: Obese patient. HEENT: Head normocephalic, nontraumatic. Mouth and buccal mucosa benign. Otherwise benign. NECK: Supple, no thyromegaly, no cervical lymphadenopathy. CHEST: Symmetric anatomy, equal expansion. Decreased air entry in general. The patient on O2. HEART: Normal sinus rhythm, no gallop, no murmur. ABDOMEN: Obese, large, soft. No hepato-organomegaly. Bowel sounds present. No pulsatile mass. No rebound effect. EXTREMITIES: 2+ edema. Stasis dermatitis noticed. NEUROLOGIC: Alert, oriented to time, place, person. Sensorimotor intact. Cranial nerves 2-12 intact. IMPRESSION: Nonspecific abdominal pain, proctitis, according to the CT scan. No nausea, vomiting. No diarrhea, no blood-tinged stool. The patient on [place], [place] REPORT OF CONSULTATION NAME: CARROLL FOY UNIT #: [id number] ROOM: [facility] DOCTOR: JASMIN DOWNEY,JARED BIRTHDATE: [birth year] already for E. coli through urine culture. This may also help if there are infective issues regarding rectum. She does not have a complaint of rectal pain. This is a coincidental finding for her. PLAN AND DISCUSSION: I would not be acutely concerned with this; however, if the patient agrees, then a flex sig would be recommended for colonic assessment, particularly the rectosigmoid anatomy. OTHER ADJUNCTIVE DIAGNOSES: As outlined. Past medical and surgical history, supportive management otherwise. Please advice, should the patient agree, then we can organize a flexible sigmoidoscopy on Saturday. JARED CASTELLANOS MD CM:CONSTR:REPORT OF CONSULTATION 1747 07/26/16 1347 interface
--- NOTE | ~2016-07-16 | PR ---
[place], [place] PROGRESS NOTE NAME: CARROLL FOY [facility] #: [id number] UNIT #: [id number] ROOM: 406 DOCTOR: POONAM GRIFFIN MD,SADIE BIRTHDATE: [birth year] DOS: 07/23/2016 SUBJECTIVE: She has been comfortably resting and sitting on the chair, was complaining of some pain in the abdomen, which has been investigated by the primary care attending. The patient has been noted without any symptoms of chest pain. She has been ordered a CT scan of the abdomen and pelvis. OBJECTIVE: VITAL SIGNS: Shows normal temperature, respiratory rate 20, heart rate of 62, blood pressure 120/61. HEENT: Showed no new change. NECK: Supple. CARDIOVASCULAR SYSTEM: S1, S2 audible. LUNGS: Exam of the lungs clear of any wheezing or crackles. ABDOMEN: Noted with chronic obesity with mild superficial tenderness. LABORATORY DATA: CBC this morning, WBC count 15.1, hemoglobin and hematocrit normal, platelet count was normal. BMP this morning was noted as completely normal. IMPRESSION: The patient with abdominal pain. The patient etiology is unclear with resolving acute exacerbation of chronic obstructive pulmonary disease for the patient, acute tracheobronchitis as well. PLAN OF TREATMENT: No changes in plan of management per the pulmonary standpoint. Continue the current therapy as previously. Usual care. All other supportive plan of management and care as in progress. SADIE LEVIN MD CM:PNTRANS 1327 06 SADIE GRIFFIN MD 07/23/162206 interface
--- NOTE | ~2016-07-16 | PR ---
[place], [place] PROGRESS NOTE [id number] UNIT #: [id number] ROOM: 406 DOCTOR: SADIE HEREDIA MD BIRTHDATE: [birth year] DOS: 07/21/2016 PULMONARY FOLLOWUP SUBJECTIVE: She has been comfortably resting on the bed, complaining of weakness, fatigue, and sleepiness today. Denies symptoms of chest pain, coughing or any sputum expectoration. OBJECTIVE: VITAL SIGNS: Normal temperature, respiratory rate 20, heart rate 75, blood pressure 100/50. The pulse oxygen saturation on 2 liters nasal cannula 94% saturation. HEENT: Examination shows chronic moderate senile hearing loss. NECK: Supple. CARDIOVASCULAR: S1, S2 audible. LUNGS: Moderate decreased breath sounds without any wheezing or crackles were noted at the present time. ABDOMEN: Soft, nontender. EXTREMITIES: Shows 1+ pitting edema. LABORATORY DATA: CBC of 07/21/2016, WBC count 11.8, hemoglobin 11.7, hematocrit were normal. Platelet count was normal. IMPRESSION: 1. The patient with resolving acute exacerbation of chronic obstructive pulmonary disease. 2. Urinary tract infection. 3. Edema of lower extremities, which has been noted current, but mild at this time. PLAN OF TREATMENT: Start the patient on oral Lasix at 40 mg daily. In the meantime, continue the patient on other treatment therapy, plan of management. Usual care. Supportive plan of therapy. Refusal of the daughter for the patient for the transfer to custodial facility. [place], [place] PROGRESS NOTE NAME: [facility]Y [facility]: [id number] UNIT #: [id number] ROOM: 406 DOCTOR: SADIE HEREDIA MD BIRTHDATE: [birth year] SADIE LEVIN MD CM:PNTRANS 1432 SADIE GRIFFIN MD 07/22/16 0454 interface
--- NOTE | ~2016-07-16 | PR ---
[place], [place] PROGRESS NOTE NAME: CARROLL FOY UNIT #: [id number] ROOM: 406 DOCTOR: SADIE HEREDIA MD BIRTHDATE: [birth year] DOS: 07/25/2016 PULMONARY FOLLOWUP SUBJECTIVE: She has been comfortably resting and sitting on the chair this morning. She denies any symptoms of chest pain. Oxygen supplementation has been continued with the nasal cannula. OBJECTIVE: VITAL SIGNS: For the patient which were recorded shows the temperature of the patient was noted as normal. The respiratory rate of the patient recorded as 20, heart rate of 79, blood pressure 128/52. Pulse oxygen saturation of the patient noted on 3 liters nasal canula 100% saturation. HEENT: Examination shows chronic obesity. NECK: Supple. CARDIOVASCULAR SYSTEM: S1, S2 audible. LUNGS: Noted without any wheezing or crackles. ABDOMEN: Soft, nontender. EXTREMITIES: Shows no edema. LABORATORY DATA: CBC this morning: WBC count 16.1, normal hemoglobin and hematocrit. Urine culture, no bacterial growth for the patient from the of this month. IMPRESSION: 1. The patient with progressive resolution and improvement in the respiratory symptoms has been continued with acute exacerbation of chronic obstructive pulmonary disease for this patient. 2. Chronic obesity. 3. Chronic hypoxic respiratory failure. 4. Senile hearing loss. 5. Intermittent confusion. PLAN OF TREATMENT: No changes from the pulmonary standpoint at this time. The patient discharge planning is noted in progress. The patient's family member assisting the patient to be discharged home, which has been planned for this patient. In the meantime, continue the patient on other therapy, plan of management care, and usual treatments. [place], [place] PROGRESS NOTE NAME: CARROLL FOY UNIT #: [id number] ROOM: 406 DOCTOR: SADIE HEREDIA MD BIRTHDATE: [birth year] SADIE LEVIN MD CM:PNTRANS 1044 00 SADIE GRIFFIN MD 07/25/162300 interface
--- NOTE | ~2016-07-16 | PR ---
[place], [place] PROGRESS NOTE NAME: CARROLL FOY [facility] #: [id number] UNIT #: [id number] ROOM: 406 DOCTOR: POONAM GRIFFIN MD,SADIE BIRTHDATE: [birth year] DOS: 07/28/2016 SUBJECTIVE: She has been comfortably resting at this time without any symptoms of acute shortness of breath. Denies symptoms of chest pain. Denies any cough. Abdominal symptoms of the patient have been resolving. OBJECTIVE: VITAL SIGNS: For the patient which have been recorded shows the temperature of the patient noted as normal. The respiratory rate of the patient recorded as 22, heart rate 87, blood pressure 122/70. The pulse oxygen saturation noted on 3 L nasal canula was 90% saturation. HEENT: Examination showed no acute change. NECK: Supple. CARDIOVASCULAR: S1, S2 audible. LUNGS: Clear. ABDOMEN: Soft and obese. LABORATORY DATA: BMP this morning, BUN 30, creatinine normal, carbon dioxide 36. CBC this morning, WBC count 11.6, hemoglobin and hematocrit normal, platelet count was normal. IMPRESSION: 1. The patient with stable respiratory status with resolution of acute exacerbation of chronic obstructive pulmonary disease was noted. 2. The patient with abdominal problem, underwent flexible sigmoidoscopy for this patient was done. Mild stool impaction for the patient was noted. There was no evidence of proctitis. PLAN OF TREATMENT: The patient has been currently planned for discharge at this time. He would be followed up in the office after the patient was discharged as well. Other supportive therapy, plan of management at this time as previously. Discharge planning per primary care attending. SADIE LEVIN MD CM:PNTRANS 1412 1557 SADIE GRIFFIN MD 07/28/16 1557 interface
[~2016-07-16 11:42] MED LIST changes: +ATROVENT I0.5 MG/2.1 INH; +COMBIVENT RESPIM4 GM INH; +GOOD NEIGHBOR150 MG PO; +MUCINEX ER600 MG PO; +PREDNISONE10 MG PO; +VITAMIN D5000 I3 PO
[2016-07-16 11:52] VITALS: BP 117/53
[2016-07-16 12:22] LABS: BASO % 0.1 % (0.0-1.0); EOS % 0.1 % (1.0-4.0); HEMATOCRIT 46.6 % (37.0-47.0); HEMOGLOBIN 14.8 g/dl (12.0-16.0); IG # 0.2 10*3/uL (0.0-0.1); LYMPH # 2.1 10*3/uL (1.3-4.4); LYMPH % 13.9 % (27.0-41.0); MEAN CELL VOLUME 84.4 fl (81.0-99.0); MEAN CORPUSCULAR HGB 26.8 pg (27.0-31.0); MEAN CORPUSCULAR HGB CONC 31.8 g/dl (33.0-37.0); MEAN PLATELET VOLUME 11.1 fl (9.6-12.3); MONO % 7.1 % (3.0-9.0); NEUT # 11.5 10*3/uL (2.3-7.9); NEUT % 77.8 % (47.0-73.0); PLATELET COUNT AUTOMATED 249 10*3/uL (130-400); RED BLOOD COUNT 5.52 10*6/uL (4.10-5.10); RED CELL DISTRI WIDTH 15.9 % (0-14.5); WHITE BLOOD COUNT 14.7 10*3/uL (4.8-10.8)
[2016-07-16 12:30] LABS: PROTHROMBIN TIME 11.1 SECONDS (9.0-12.4)
[2016-07-16 12:41] LABS: ALBUMIN 3.6 gm/dl (3.1-4.5); BILIRUBIN, TOTAL 0.7 mg/dl (0.2-1.0); BUN 65 mg/dl (7-24); CARBON DIOXIDE 35 mmol/L (21-32); CHLORIDE 92 mmol/L (98-107); EST GLOM FILT AFRICAN AMERICAN > 60 ml/min; GLUCOSE 147 mg/dL (65-99); MAGNESIUM 2.1 mg/dL (1.5-2.1); POTASSIUM 4.2 mmol/L (3.5-5.1); SGOT/AST 12 IU/L (3-35); SGPT/ALT 31 U/L (12-78); SODIUM 136 mmol/L (136-145); TOTAL PROTEIN 7.6 gm/dL (6.4-8.2)
[2016-07-16 12:42] LABS: ALKALINE PHOSPHATASE 90 U/L (45-117); CPK 17 U/L (26-192)
[2016-07-16 12:45] LABS: C-REACTIVE PROTEIN < 0.29 MG/DL (0-0.3); CKMB < 0.5 ng/ml (0.5-3.6); TROPONIN I < 0.015 ng/ml (<0.045)
[2016-07-16 14:19] LABS: LA>2 REFLEX 2 HR DRAW NOW
[2016-07-16 14:46] LABS: LA>2 RFLX FOLLOW UP AT 2 HRS 2.8 mmol/L (0.4-2.0)
[2016-07-16 14:47] VITALS: BP 129/75
[2016-07-16 15:17] VITALS: BP 136/76
[2016-07-16 16:23] LABS: BILIRUBIN NEGATIVE (NEGATIVE); BLOOD TRACE-INTACT (NEGATIVE); CLARITY CLOUDY (CLEAR); COLOR YELLOW (YELLOW); GLUCOSE NEGATIVE (NEGATIVE); KETONE NEGATIVE (NEGATIVE); LEUKO ESTERASE 2+ (NEGATIVE); NITRITE NEGATIVE (NEGATIVE); PH 5.5 (5.0-9.0); PROTEIN NEGATIVE (NEGATIVE); UROBILINOGEN 0.2 E.U./dl (0.2-1.0)
[2016-07-16 16:33] LABS: BACTERIA 2+; MUCOUS TRACE; URINE REFLEX COMMENT YES (NO); WBC TNTC wbc/hpf (0-5)
[2016-07-16 16:40] LABS: LA>2 REFLEX 4 HR DRAW NOW
[2016-07-16 18:26] VITALS: BP 117/53
[2016-07-16 19:38] VITALS: BP 144/83
[2016-07-17] VITALS: BP 120/60
[2016-07-17 07:03] LABS: BASO % 0.2 % (0.0-1.0); HEMATOCRIT 41.2 % (37.0-47.0); HEMOGLOBIN 13.1 g/dl (12.0-16.0); IG # 0.1 10*3/uL (0.0-0.1); LYMPH # 1.2 10*3/uL (1.3-4.4); LYMPH % 9.8 % (27.0-41.0); MEAN CELL VOLUME 85.7 fl (81.0-99.0); MEAN CORPUSCULAR HGB 27.2 pg (27.0-31.0); MEAN CORPUSCULAR HGB CONC 31.8 g/dl (33.0-37.0); MEAN PLATELET VOLUME 11.3 fl (9.6-12.3); MONO # 0.2 10*3/uL (0.1-1.0); MONO % 1.9 % (3.0-9.0); NEUT # 10.3 10*3/uL (2.3-7.9); PLATELET COUNT AUTOMATED 233 10*3/uL (130-400); RED BLOOD COUNT 4.81 10*6/uL (4.10-5.10); RED CELL DISTRI WIDTH 15.9 % (0-14.5); WHITE BLOOD COUNT 11.9 10*3/uL (4.8-10.8)
[2016-07-17 08:00] VITALS: BP 152/85
[2016-07-17 08:57] LABS: CARBON DIOXIDE 26 mmol/L (21-32); CHLORIDE 103 mmol/L (98-107); EST GLOM FILT AFRICAN AMERICAN > 60 ml/min; GLUCOSE 179 mg/dL (65-99); PHOSPHOROUS 3.4 mg/dL (2.5-4.9); POTASSIUM 4.6 mmol/L (3.5-5.1); SODIUM 137 mmol/L (136-145)
[2016-07-17 09:15] LABS: BUN 46 mg/dl (7-24)
[2016-07-17 10:39] LABS: MAGNESIUM 1.8 mg/dL (1.5-2.1)
[2016-07-17 12:00] VITALS: BP 158/77
[2016-07-17 15:32] LABS: LA>2 REFLEX 2 HR DRAW NOW
[2016-07-17 15:57] LABS: LA>2 RFLX FOLLOW UP AT 2 HRS 4.5 mmol/L (0.4-2.0)
[2016-07-17 16:00] VITALS: BP 157/82
[2016-07-17 17:50] LABS: LA>2 REFLEX 4 HR DRAW NOW
[2016-07-17 20:00] VITALS: BP 140/60
[2016-07-18] VITALS: BP 140/63
[2016-07-18 04:00] VITALS: BP 130/70
[2016-07-18 06:02] LABS: BASO % 0.1 % (0.0-1.0); HEMATOCRIT 35.8 % (37.0-47.0); HEMOGLOBIN 11.1 g/dl (12.0-16.0); IG # 0.3 10*3/uL (0.0-0.1); LYMPH # 1.6 10*3/uL (1.3-4.4); LYMPH % 10.1 % (27.0-41.0); MEAN CELL VOLUME 85.6 fl (81.0-99.0); MEAN CORPUSCULAR HGB 26.6 pg (27.0-31.0); MEAN PLATELET VOLUME 11.5 fl (9.6-12.3); MONO # 0.7 10*3/uL (0.1-1.0); MONO % 4.1 % (3.0-9.0); NEUT # 13.4 10*3/uL (2.3-7.9); PLATELET COUNT AUTOMATED 206 10*3/uL (130-400); RED BLOOD COUNT 4.18 10*6/uL (4.10-5.10); RED CELL DISTRI WIDTH 16.1 % (0-14.5)
[2016-07-18 06:21] LABS: BUN 38 mg/dl (7-24); CARBON DIOXIDE 31 mmol/L (21-32); CHLORIDE 105 mmol/L (98-107); EST GLOM FILT AFRICAN AMERICAN > 60 ml/min; GLUCOSE 159 mg/dL (65-99); POTASSIUM 4.7 mmol/L (3.5-5.1); SODIUM 141 mmol/L (136-145)
[2016-07-18 08:00] VITALS: BP 138/75
[2016-07-18 12:00] VITALS: BP 132/59
[2016-07-18 16:00] VITALS: BP 119/61
[2016-07-18 20:00] VITALS: BP 135/65
[2016-07-19] VITALS: BP 96/63
[2016-07-19 06:22] LABS: HEMATOCRIT 36.7 % (37.0-47.0); HEMOGLOBIN 11.4 g/dl (12.0-16.0); MEAN CELL VOLUME 86.2 fl (81.0-99.0); MEAN CORPUSCULAR HGB 26.8 pg (27.0-31.0); MEAN CORPUSCULAR HGB CONC 31.1 g/dl (33.0-37.0); MEAN PLATELET VOLUME 11.8 fl (9.6-12.3); PLATELET COUNT AUTOMATED 186 10*3/uL (130-400); RED BLOOD COUNT 4.26 10*6/uL (4.10-5.10); RED CELL DISTRI WIDTH 16.1 % (0-14.5); WHITE BLOOD COUNT 15.4 10*3/uL (4.8-10.8)
[2016-07-19 06:54] LABS: BUN 30 mg/dl (7-24); CARBON DIOXIDE 30 mmol/L (21-32); CHLORIDE 105 mmol/L (98-107); EST GLOM FILT AFRICAN AMERICAN > 60 ml/min; GLUCOSE 136 mg/dL (65-99); POTASSIUM 4.9 mmol/L (3.5-5.1); SODIUM 142 mmol/L (136-145)
[2016-07-19 07:12] LABS: ATYPICAL LYMPHS 1 % (0-0); LYMPHOCYTE # 1.4 10*3/uL (1.3-4.4); METAMYELOCYTES 1 % (0-0); MONOCYTE # 0.3 10*3/uL (0.1-1.0); NEUTROPHIL # 13.6 10*3/uL (2.3-7.9); NEUTROPHILS 88 % (47-73); PLATELET SUFFICIENCY NORMAL (NORMAL); TOTAL CELLS COUNTED 100 #CELLS
[2016-07-19 08:00] VITALS: BP 157/62
[2016-07-19 12:00] VITALS: BP 124/64
[2016-07-19 16:00] VITALS: BP 132/67
[2016-07-19 20:00] VITALS: BP 149/76
[2016-07-20] VITALS: BP 142/73
[2016-07-20 08:00] VITALS: BP 145/74
[2016-07-20 12:00] VITALS: BP 133/67
[2016-07-20 16:00] VITALS: BP 110/78
[2016-07-20 20:00] VITALS: BP 134/75
[2016-07-21 00:03] VITALS: BP 124/66
[2016-07-21 06:10] LABS: BASO % 0.2 % (0.0-1.0); EOS % 0.3 % (1.0-4.0); HEMATOCRIT 37.5 % (37.0-47.0); HEMOGLOBIN 11.7 g/dl (12.0-16.0); IG # 0.3 10*3/uL (0.0-0.1); LYMPH # 2.6 10*3/uL (1.3-4.4); LYMPH % 21.9 % (27.0-41.0); MEAN CELL VOLUME 86.4 fl (81.0-99.0); MEAN CORPUSCULAR HGB CONC 31.2 g/dl (33.0-37.0); MEAN PLATELET VOLUME 11.6 fl (9.6-12.3); NEUT # 7.9 10*3/uL (2.3-7.9); NEUT % 67.1 % (47.0-73.0); PLATELET COUNT AUTOMATED 180 10*3/uL (130-400); RED BLOOD COUNT 4.34 10*6/uL (4.10-5.10); RED CELL DISTRI WIDTH 16.4 % (0-14.5); WHITE BLOOD COUNT 11.8 10*3/uL (4.8-10.8)
[2016-07-21 08:00] VITALS: BP 130/72
[2016-07-21 12:00] VITALS: BP 100/50
[2016-07-21 16:00] VITALS: BP 134/53
[2016-07-21 20:00] VITALS: BP 119/61
[2016-07-22] VITALS: BP 109/56; BP 119/61
[2016-07-22 06:29] LABS: EST GLOM FILT AFRICAN AMERICAN > 60 ml/min
[2016-07-22 08:00] VITALS: BP 120/60
[2016-07-22 12:00] VITALS: BP 137/74
[2016-07-22 16:00] VITALS: BP 124/80
[2016-07-22 20:00] VITALS: BP 118/63
[2016-07-23] VITALS: BP 120/61
[2016-07-23 06:42] LABS: BASO % 0.1 % (0.0-1.0); EOS # 0.1 10*3/uL (0.0-0.4); EOS % 0.4 % (1.0-4.0); HEMOGLOBIN 12.6 g/dl (12.0-16.0); IG # 0.2 10*3/uL (0.0-0.1); LYMPH % 13.4 % (27.0-41.0); MEAN CELL VOLUME 84.2 fl (81.0-99.0); MEAN CORPUSCULAR HGB 27.2 pg (27.0-31.0); MEAN CORPUSCULAR HGB CONC 32.3 g/dl (33.0-37.0); MEAN PLATELET VOLUME 11.1 fl (9.6-12.3); MONO # 0.9 10*3/uL (0.1-1.0); MONO % 5.6 % (3.0-9.0); NEUT % 79.5 % (47.0-73.0); PLATELET COUNT AUTOMATED 156 10*3/uL (130-400); RED BLOOD COUNT 4.63 10*6/uL (4.10-5.10); RED CELL DISTRI WIDTH 16.5 % (0-14.5); WHITE BLOOD COUNT 15.1 10*3/uL (4.8-10.8)
[2016-07-23 06:48] LABS: BUN 23 mg/dl (7-24); CARBON DIOXIDE 30 mmol/L (21-32); CHLORIDE 100 mmol/L (98-107); EST GLOM FILT AFRICAN AMERICAN > 60 ml/min; GLUCOSE 98 mg/dL (65-99); POTASSIUM 4.1 mmol/L (3.5-5.1); SODIUM 138 mmol/L (136-145)
[2016-07-23 08:00] VITALS: BP 122/50
[2016-07-23 12:00] VITALS: BP 102/50
[2016-07-23 14:03] LABS: BILIRUBIN NEGATIVE (NEGATIVE); BLOOD TRACE-INTACT (NEGATIVE); CLARITY CLEAR (CLEAR); COLOR YELLOW (YELLOW); GLUCOSE NEGATIVE (NEGATIVE); KETONE NEGATIVE (NEGATIVE); LEUKO ESTERASE TRACE (NEGATIVE); NITRITE NEGATIVE (NEGATIVE); PH 5.5 (5.0-9.0); PROTEIN NEGATIVE (NEGATIVE); SPECIFIC GRAVITY <= 1.005 (1.005-1.030); UROBILINOGEN 0.2 E.U./dl (0.2-1.0)
[2016-07-23 14:19] LABS: RBC 0-2 rbc/hpf (0-2); URINE REFLEX COMMENT YES (NO)
[2016-07-23 16:00] VITALS: BP 106/88
[2016-07-23 20:00] VITALS: BP 120/69
[2016-07-24] VITALS: BP 119/60
[2016-07-24 06:49] LABS: BASO % 0.1 % (0.0-1.0); EOS # 0.1 10*3/uL (0.0-0.4); EOS % 0.4 % (1.0-4.0); HEMATOCRIT 39.6 % (37.0-47.0); HEMOGLOBIN 12.8 g/dl (12.0-16.0); IG # 0.1 10*3/uL (0.0-0.1); LYMPH # 2.3 10*3/uL (1.3-4.4); LYMPH % 13.7 % (27.0-41.0); MEAN CELL VOLUME 84.1 fl (81.0-99.0); MEAN CORPUSCULAR HGB 27.2 pg (27.0-31.0); MEAN CORPUSCULAR HGB CONC 32.3 g/dl (33.0-37.0); MEAN PLATELET VOLUME 11.5 fl (9.6-12.3); NEUT # 13.1 10*3/uL (2.3-7.9); NEUT % 79.1 % (47.0-73.0); PLATELET COUNT AUTOMATED 169 10*3/uL (130-400); RED BLOOD COUNT 4.71 10*6/uL (4.10-5.10); RED CELL DISTRI WIDTH 16.3 % (0-14.5); WHITE BLOOD COUNT 16.6 10*3/uL (4.8-10.8)
[2016-07-24 07:21] LABS: ALBUMIN 2.7 gm/dl (3.1-4.5); ALKALINE PHOSPHATASE 62 U/L (45-117); BILIRUBIN, TOTAL 0.9 mg/dl (0.2-1.0); BUN 20 mg/dl (7-24); CARBON DIOXIDE 33 mmol/L (21-32); CHLORIDE 98 mmol/L (98-107); EST GLOM FILT AFRICAN AMERICAN > 60 ml/min; GLUCOSE 95 mg/dL (65-99); POTASSIUM 4.3 mmol/L (3.5-5.1); SGOT/AST 15 IU/L (3-35); SGPT/ALT 37 U/L (12-78); SODIUM 140 mmol/L (136-145)
[2016-07-24 08:00] VITALS: BP 126/66
[2016-07-24 12:00] VITALS: BP 126/57
[2016-07-24 16:00] VITALS: BP 135/59
[2016-07-24 20:00] VITALS: BP 143/62
[2016-07-25] VITALS: BP 108/60
[2016-07-25 06:42] LABS: BASO % 0.1 % (0.0-1.0); EOS % 0.1 % (1.0-4.0); HEMATOCRIT 40.8 % (37.0-47.0); HEMOGLOBIN 12.9 g/dl (12.0-16.0); IG # 0.1 10*3/uL (0.0-0.1); LYMPH # 1.7 10*3/uL (1.3-4.4); LYMPH % 10.6 % (27.0-41.0); MEAN CORPUSCULAR HGB 26.9 pg (27.0-31.0); MEAN CORPUSCULAR HGB CONC 31.6 g/dl (33.0-37.0); MEAN PLATELET VOLUME 11.8 fl (9.6-12.3); MONO % 5.9 % (3.0-9.0); NEUT # 13.3 10*3/uL (2.3-7.9); NEUT % 82.5 % (47.0-73.0); PLATELET COUNT AUTOMATED 184 10*3/uL (130-400); RED CELL DISTRI WIDTH 16.2 % (0-14.5); WHITE BLOOD COUNT 16.1 10*3/uL (4.8-10.8)
[2016-07-25 08:00] VITALS: BP 120/75; BP 128/52
[2016-07-25 12:00] VITALS: BP 129/47
[2016-07-25 16:00] VITALS: BP 125/52
[2016-07-25 20:00] VITALS: BP 110/51
[2016-07-26] VITALS: BP 136/79
[2016-07-26 06:23] LABS: BASO % 0.1 % (0.0-1.0); EOS % 0.1 % (1.0-4.0); IG # 0.1 10*3/uL (0.0-0.1); LYMPH # 1.6 10*3/uL (1.3-4.4); LYMPH % 11.9 % (27.0-41.0); MEAN CORPUSCULAR HGB 26.8 pg (27.0-31.0); MEAN CORPUSCULAR HGB CONC 31.6 g/dl (33.0-37.0); MEAN PLATELET VOLUME 11.5 fl (9.6-12.3); MONO # 0.8 10*3/uL (0.1-1.0); NEUT # 10.9 10*3/uL (2.3-7.9); NEUT % 81.2 % (47.0-73.0); PLATELET COUNT AUTOMATED 179 10*3/uL (130-400); RED BLOOD COUNT 4.47 10*6/uL (4.10-5.10); RED CELL DISTRI WIDTH 16.1 % (0-14.5); WHITE BLOOD COUNT 13.4 10*3/uL (4.8-10.8)
[2016-07-26 06:52] LABS: BUN 29 mg/dl (7-24); CARBON DIOXIDE 37 mmol/L (21-32); CHLORIDE 96 mmol/L (98-107); EST GLOM FILT AFRICAN AMERICAN > 60 ml/min; GLUCOSE 113 mg/dL (65-99); POTASSIUM 4.2 mmol/L (3.5-5.1); SODIUM 138 mmol/L (136-145)
[2016-07-26 08:00] VITALS: BP 138/80
[2016-07-26 12:00] VITALS: BP 121/55
[2016-07-26 15:51] VITALS: BP 113/95
[2016-07-26 20:00] VITALS: BP 126/66
[2016-07-27] VITALS (10 sets, daily range): BP systolic 62–140; BP diastolic 27–86
[2016-07-27 06:36] LABS: BASO % 0.1 % (0.0-1.0); EOS % 0.1 % (1.0-4.0); HEMATOCRIT 39.2 % (37.0-47.0); HEMOGLOBIN 12.5 g/dl (12.0-16.0); IG # 0.1 10*3/uL (0.0-0.1); LYMPH # 1.1 10*3/uL (1.3-4.4); LYMPH % 9.7 % (27.0-41.0); MEAN CELL VOLUME 84.7 fl (81.0-99.0); MEAN CORPUSCULAR HGB CONC 31.9 g/dl (33.0-37.0); MEAN PLATELET VOLUME 11.5 fl (9.6-12.3); MONO # 0.6 10*3/uL (0.1-1.0); MONO % 5.8 % (3.0-9.0); NEUT # 9.2 10*3/uL (2.3-7.9); NEUT % 83.4 % (47.0-73.0); PLATELET COUNT AUTOMATED 199 10*3/uL (130-400); RED BLOOD COUNT 4.63 10*6/uL (4.10-5.10); RED CELL DISTRI WIDTH 16.5 % (0-14.5); WHITE BLOOD COUNT 11.1 10*3/uL (4.8-10.8)
[2016-07-27 06:38] LABS: BILIRUBIN NEGATIVE (NEGATIVE); BLOOD NEGATIVE (NEGATIVE); CLARITY CLEAR (CLEAR); COLOR YELLOW (YELLOW); GLUCOSE NEGATIVE (NEGATIVE); KETONE NEGATIVE (NEGATIVE); LEUKO ESTERASE NEGATIVE (NEGATIVE); NITRITE NEGATIVE (NEGATIVE); PH 6.5 (5.0-9.0); PROTEIN NEGATIVE (NEGATIVE); UROBILINOGEN 0.2 E.U./dl (0.2-1.0)
[2016-07-27 07:13] LABS: CHLORIDE 95 mmol/L (98-107); SODIUM 137 mmol/L (136-145)
[2016-07-27 07:19] LABS: BUN 24 mg/dl (7-24); CARBON DIOXIDE 34 mmol/L (21-32); EST GLOM FILT AFRICAN AMERICAN > 60 ml/min; GLUCOSE 119 mg/dL (65-99)
[2016-07-27 07:25] LABS: URINE REFLEX COMMENT NO (NO)
[2016-07-28] VITALS: BP 140/80
[2016-07-28 06:36] LABS: BASO % 0.2 % (0.0-1.0); EOS % 0.1 % (1.0-4.0); HEMATOCRIT 39.2 % (37.0-47.0); HEMOGLOBIN 12.2 g/dl (12.0-16.0); IG # 0.1 10*3/uL (0.0-0.1); LYMPH # 0.9 10*3/uL (1.3-4.4); MEAN CELL VOLUME 85.8 fl (81.0-99.0); MEAN CORPUSCULAR HGB 26.7 pg (27.0-31.0); MEAN CORPUSCULAR HGB CONC 31.1 g/dl (33.0-37.0); MEAN PLATELET VOLUME 11.9 fl (9.6-12.3); MONO # 0.5 10*3/uL (0.1-1.0); MONO % 4.4 % (3.0-9.0); NEUT # 10.1 10*3/uL (2.3-7.9); NEUT % 86.8 % (47.0-73.0); PLATELET COUNT AUTOMATED 187 10*3/uL (130-400); RED BLOOD COUNT 4.57 10*6/uL (4.10-5.10); RED CELL DISTRI WIDTH 16.5 % (0-14.5); WHITE BLOOD COUNT 11.6 10*3/uL (4.8-10.8)
[2016-07-28 06:42] LABS: BUN 30 mg/dl (7-24); CARBON DIOXIDE 36 mmol/L (21-32); CHLORIDE 96 mmol/L (98-107); EST GLOM FILT AFRICAN AMERICAN > 60 ml/min; GLUCOSE 124 mg/dL (65-99); POTASSIUM 4.4 mmol/L (3.5-5.1); SODIUM 138 mmol/L (136-145)
[2016-07-28 08:00] VITALS: BP 122/70
[2016-07-28] MEDS ORDERED: PREDNISONE10 MG PO (10:18)
[2016-07-28] MEDS ORDERED: FUROSEMIDE40 MG PO (10:20)
[2016-07-28] MEDS ORDERED: KLOR-CON M1010 ME1 PO (10:25)
[2016-07-28 12:00] VITALS: BP 122/70
== END 2016-07-28 16:20 | disposition home health service (06) | DRG 871 ==
LOC: ED 11:42 → EDHOLD 16:51 → 4E 16:51
PROVIDERS: Emergency Medicine; Hospitalist; Internal Medicine; Internal Medicine Gastroenterology
PROC: 0DJD8ZZ Inspection of Lower Intestinal Tract, Via Natural or Artificial Opening Endoscopic (ICD-10-PCS; principal; 2016-07-27)
DX: A41.9 Sepsis, unspecified organism (principal); J96.21 Acute and chronic respiratory failure with hypoxia; E87.2 Acidosis; J18.9 Pneumonia, unspecified organism; K56.7 Ileus, unspecified; I50.32 Chronic diastolic (congestive) heart failure; K76.0 Fatty (change of) liver, not elsewhere classified; J44.0 Chronic obstructive pulmonary disease with (acute) lower respiratory infection; I27.81 Cor pulmonale (chronic); J44.1 Chronic obstructive pulmonary disease with (acute) exacerbation; N30.01 Acute cystitis with hematuria; K57.30 Diverticulosis of large intestine without perforation or abscess without bleeding; E86.0 Dehydration; H91.93 Unspecified hearing loss, bilateral; E78.5 Hyperlipidemia, unspecified; K21.9 Gastro-esophageal reflux disease without esophagitis; E03.9 Hypothyroidism, unspecified; E66.01 Morbid (severe) obesity due to excess calories; K62.89 Other specified diseases of anus and rectum; R65.20 Severe sepsis without septic shock; K56.41 Fecal impaction; J20.9 Acute bronchitis, unspecified; I51.7 Cardiomegaly; B96.20 Unspecified Escherichia coli [E. coli] as the cause of diseases classified elsewhere; F17.210 Nicotine dependence, cigarettes, uncomplicated; Z96.1 Presence of intraocular lens; G30.9 Alzheimer's disease, unspecified; F02.80 Dementia in other diseases classified elsewhere, unspecified severity, without behavioral disturbance, psychotic disturbance, mood disturbance, and anxiety; Z80.0 Family history of malignant neoplasm of digestive organs; Z88.2 Allergy status to sulfonamides; Z79.2 Long term (current) use of antibiotics; Z98.42 Cataract extraction status, left eye; Z98.41 Cataract extraction status, right eye; Z79.84 Long term (current) use of oral hypoglycemic drugs; Z79.899 Other long term (current) drug therapy; Z68.34 Body mass index [BMI] 34.0-34.9, adult

== ENCOUNTER 2016-08-06 08:42 | Inpatient (IN) | payer MEDICARE ==
[~2016-08-06] VITALS: Ht 157.4 cm; Wt 86.3 kg
--- NOTE | ~2016-08-06 | PROC NOTE ---
[place], [place] PROCEDURE NOTE NAME: MANDY FOY [facility] #: [id number] UNIT #: [id number] ROOM: 508 DOCTOR: JOSEPH LUNA BIRTHDATE: [birth year] DOS: 08/13/2016 MODIFIED BARIUM SWALLOW LOCATION: [facility], room 508, bed 1. DOCTOR: Dr. Dennis. RADIOLOGIST: Dr. [place]. BACKGROUND INFORMATION: Mandy Foy, a 75-year-old female, was seen for modified barium swallow. This test was ordered to rule out aspiration. Medical history is significant for metabolic encephalopathy, near syncope, dehydration, CHF, GERD, asthma, COPD, anxiety, depression, angina and Alzheimer's. Patient also suffered a recent UTI. The patient was seen for a bedside swallowing evaluation last week. She reported that she sometimes had a hard time swallowing and felt that food was sticking in her throat. At the time of assessment, she showed safe tolerance for thin liquids and purees. She would not consume anything solid at that time; therefore, she was not assessed with solid food consistencies. For today's assessment, the patient was alert with confusion, but able to follow commands. She is receiving a soft diet and thin liquids. Respiratory status revealed presence of oxygen via nasal cannula. Oral peripheral examination revealed presence of upper and lower dentures. Labial skills were mildly reduced in range of motion. Lingual skills were within normal limits. The patient was able to volitionally cough and swallow. METHODS AND MATERIALS USED FOR THE EXAM: The patient was positioned in the lateral plane and the examination was viewed under fluoroscopy. The patient was presented with a variety of consistencies to assess swallowing skills including applesauce mixed with barium presented in half teaspoon amounts, barium-coated pears and cookie given in bite size pieces and thin liquid barium taken by cup and straw. ORAL PHASE: The patient achieved adequate labial seal around cup, spoon and straw with no anterior loss. Bolus formation was mildly reduced with barium-coated cookie, application of solids was slow, which resulted in slow oral transit time with the solid consistency. The patient achieved adequate tongue to palate contact. Tongue to posterior pharyngeal wall contact was adequate. Velar functioning was within normal limits. PHARYNGEAL PHASE: The pharyngeal swallow occurred within a timely manner with all consistencies given, laryngeal elevation and epiglottic function were mildly reduced with thin liquid as transient penetration occurred with cup and straw without aspiration. There was no aspiration with any consistency and no pooling in the pharynx. ESOPHAGEAL PHASE: This phase of the swallow was not formally assessed during this examination. IMPRESSIONS AND RECOMMENDATIONS: Based upon assessment results, this [place], [place] PROCEDURE NOTE NAME: MANDY FOY UNIT #: [id number] ROOM: 508 DOCTOR: JOSEPH LUNA BIRTHDATE: [birth year] 75-year-old patient presents with a mild oropharyngeal dysphagia characterized by slow mastication and propulsion with cookie and transient penetration with thin liquid without aspiration. Recommend soft diet and thin liquids with liquids consumed in small single sips. Followup therapy is recommended to ensure safety through laryngeal elevation exercises, use of safety strategies and education. Results and recommendations were shared with the patient and nurse and they verbalized understanding. Thank you very much for this referral. Should you have any questions regarding this patient, please contact the speech pathologist at [phone]. JOSEPH LUNA CM:PROCNOTE:PROCEDURE NOTE 1541 0022 JOSEPH LUNA
[~2016-08-06 08:42] MED LIST changes: +FUROSEMIDE40 MG PO; +KLOR-CON M1010 ME1 PO
[2016-08-06 08:55] VITALS: BP 106/68
[2016-08-06 09:13] LABS: BASO % 0.1 % (0.0-1.0); EOS % 0.2 % (1.0-4.0); HEMATOCRIT 40.6 % (37.0-47.0); IG # 0.1 10*3/uL (0.0-0.1); LYMPH # 0.9 10*3/uL (1.3-4.4); LYMPH % 7.4 % (27.0-41.0); MEAN CELL VOLUME 85.1 fl (81.0-99.0); MEAN CORPUSCULAR HGB 27.3 pg (27.0-31.0); MEAN PLATELET VOLUME 11.4 fl (9.6-12.3); MONO # 0.8 10*3/uL (0.1-1.0); MONO % 6.8 % (3.0-9.0); NEUT # 10.5 10*3/uL (2.3-7.9); NEUT % 84.9 % (47.0-73.0); PLATELET COUNT AUTOMATED 202 10*3/uL (130-400); RED BLOOD COUNT 4.77 10*6/uL (4.10-5.10); RED CELL DISTRI WIDTH 17.2 % (0-14.5); WHITE BLOOD COUNT 12.4 10*3/uL (4.8-10.8)
[2016-08-06 09:23] LABS: INTERNATIONAL NORM RATIO 1.1 (2.0-3.5)
[2016-08-06 09:28] LABS: ALBUMIN 3.3 gm/dl (3.1-4.5); ALKALINE PHOSPHATASE 61 U/L (45-117); BUN 80 mg/dl (7-24); C-REACTIVE PROTEIN 0.39 MG/DL (0-0.3); CARBON DIOXIDE 31 mmol/L (21-32); CHLORIDE 99 mmol/L (98-107); CKMB 0.8 ng/ml (0.5-3.6); CPK 72 U/L (26-192); EST GLOM FILT AFRICAN AMERICAN 31 ml/min; GLUCOSE 127 mg/dL (65-99); MAGNESIUM 1.6 mg/dL (1.5-2.1); POTASSIUM 4.2 mmol/L (3.5-5.1); SGOT/AST 18 IU/L (3-35); SGPT/ALT 35 U/L (12-78); SODIUM 142 mmol/L (136-145); TOTAL PROTEIN 6.9 gm/dL (6.4-8.2)
[2016-08-06 09:29] LABS: TROPONIN I < 0.015 ng/ml (<0.045)
[2016-08-06 10:34] VITALS: BP 112/68
[2016-08-06 10:39] LABS: BILIRUBIN NEGATIVE (NEGATIVE); BLOOD NEGATIVE (NEGATIVE); CLARITY SL CLOUDY (CLEAR); COLOR YELLOW (YELLOW); GLUCOSE NEGATIVE (NEGATIVE); KETONE NEGATIVE (NEGATIVE); LEUKO ESTERASE NEGATIVE (NEGATIVE); NITRITE NEGATIVE (NEGATIVE); PH 5.5 (5.0-9.0); PROTEIN TRACE (NEGATIVE); SPECIFIC GRAVITY 1.025 (1.005-1.030); UROBILINOGEN 0.2 E.U./dl (0.2-1.0)
[2016-08-06 11:02] LABS: BACTERIA 2+; CALCIUM OXALATE CRYSTALS 2+; URINE REFLEX COMMENT YES (NO)
[2016-08-06 11:11] LABS: LA>2 REFLEX 2 HR DRAW NOW
[2016-08-06 11:16] VITALS: BP 104/46
[2016-08-06 12:45] VITALS: BP 125/52
[2016-08-06 16:00] VITALS: BP 105/48
[2016-08-06 20:00] VITALS: BP 124/64
[2016-08-07] VITALS: BP 120/71
[2016-08-07 06:38] LABS: BASO % 0.1 % (0.0-1.0); EOS # 0.1 10*3/uL (0.0-0.4); EOS % 0.8 % (1.0-4.0); HEMATOCRIT 35.2 % (37.0-47.0); HEMOGLOBIN 11.1 g/dl (12.0-16.0); IG # 0.1 10*3/uL (0.0-0.1); LYMPH # 1.2 10*3/uL (1.3-4.4); LYMPH % 10.2 % (27.0-41.0); MEAN CELL VOLUME 86.7 fl (81.0-99.0); MEAN CORPUSCULAR HGB 27.3 pg (27.0-31.0); MEAN CORPUSCULAR HGB CONC 31.5 g/dl (33.0-37.0); MEAN PLATELET VOLUME 11.7 fl (9.6-12.3); MONO # 0.7 10*3/uL (0.1-1.0); MONO % 6.4 % (3.0-9.0); NEUT # 9.3 10*3/uL (2.3-7.9); NEUT % 81.9 % (47.0-73.0); PLATELET COUNT AUTOMATED 167 10*3/uL (130-400); RED BLOOD COUNT 4.06 10*6/uL (4.10-5.10); RED CELL DISTRI WIDTH 17.6 % (0-14.5); WHITE BLOOD COUNT 11.3 10*3/uL (4.8-10.8)
[2016-08-07 07:11] LABS: ALBUMIN 2.7 gm/dl (3.1-4.5); ALKALINE PHOSPHATASE 53 U/L (45-117); BILIRUBIN, TOTAL 0.8 mg/dl (0.2-1.0); CARBON DIOXIDE 32 mmol/L (21-32); CHLORIDE 109 mmol/L (98-107); CHOLESTEROL 177 mg/dL (<200); EST GLOM FILT AFRICAN AMERICAN > 60 ml/min; GLUCOSE 83 mg/dL (65-99); HDL CHOLESTEROL 46 mg/dl (40-60); LDL CHOLESTEROL 88 mg/dL (9-159); MAGNESIUM 1.6 mg/dL (1.5-2.1); PHOSPHOROUS 1.5 mg/dL (2.5-4.9); POTASSIUM 3.6 mmol/L (3.5-5.1); SGOT/AST 17 IU/L (3-35); SGPT/ALT 28 U/L (12-78); SODIUM 148 mmol/L (136-145); TOTAL PROTEIN 5.6 gm/dL (6.4-8.2); TRIGLYCERIDES 213 mg/dl (<150); VLDL CHOLESTEROL 43 mg/dL (6-40)
[2016-08-07 07:13] LABS: HEMOGLOBIN A1c 7.1 % (4.8-5.6)
[2016-08-07 07:14] LABS: BUN 56 mg/dl (7-24)
[2016-08-07 07:33] LABS: VITAMIN D, 25-HYDROXY 57.7 ng/mL (30-100)
[2016-08-07 07:34] LABS: FOLIC ACID 9.53 ng/mL (>5.38)
[2016-08-07 08:00] VITALS: BP 124/66
[2016-08-07 12:00] VITALS: BP 141/69
[2016-08-08] VITALS: BP 116/65
[2016-08-08 08:00] VITALS: BP 126/66
[2016-08-08 12:00] VITALS: BP 119/64
[2016-08-08 20:00] VITALS: BP 99/52
[2016-08-09] VITALS: BP 98/51
[2016-08-09 06:58] LABS: CARBON DIOXIDE 26 mmol/L (21-32); CHLORIDE 109 mmol/L (98-107); EST GLOM FILT AFRICAN AMERICAN > 60 ml/min; GLUCOSE 114 mg/dL (65-99); POTASSIUM 4.4 mmol/L (3.5-5.1); SODIUM 149 mmol/L (136-145)
[2016-08-09 07:00] LABS: BUN 34 mg/dl (7-24)
[2016-08-09 08:00] VITALS: BP 97/48
[2016-08-09 09:57] VITALS: BP 112/56
[2016-08-09 16:00] VITALS: BP 107/53
[2016-08-09 20:00] VITALS: BP 119/59
[2016-08-10 01:52] VITALS: BP 96/52
[2016-08-10 06:30] LABS: ALBUMIN 2.3 gm/dl (3.1-4.5); ALKALINE PHOSPHATASE 53 U/L (45-117); BILIRUBIN, TOTAL 0.6 mg/dl (0.2-1.0); BUN 27 mg/dl (7-24); CARBON DIOXIDE 29 mmol/L (21-32); CHLORIDE 109 mmol/L (98-107); EST GLOM FILT AFRICAN AMERICAN > 60 ml/min; GLUCOSE 130 mg/dL (65-99); MAGNESIUM 1.4 mg/dL (1.5-2.1); POTASSIUM 3.5 mmol/L (3.5-5.1); SGOT/AST 17 IU/L (3-35); SGPT/ALT 26 U/L (12-78); SODIUM 148 mmol/L (136-145); TOTAL PROTEIN 5.2 gm/dL (6.4-8.2)
[2016-08-10 08:00] VITALS: BP 110/56
[2016-08-10 12:00] VITALS: BP 97/63
[2016-08-10 16:00] VITALS: BP 119/90
[2016-08-11] VITALS: BP 106/64
[2016-08-11 08:00] VITALS: BP 131/60
[2016-08-11 12:00] VITALS: BP 113/45
[2016-08-11 16:00] VITALS: BP 120/55
[2016-08-11 20:00] VITALS: BP 88/40
[2016-08-11 20:10] VITALS: BP 96/52
[2016-08-12] VITALS: BP 117/71
[2016-08-12 06:24] LABS: BASO % 0.2 % (0.0-1.0); EOS # 0.1 10*3/uL (0.0-0.4); EOS % 1.8 % (1.0-4.0); HEMATOCRIT 34.7 % (37.0-47.0); IG # 0.1 10*3/uL (0.0-0.1); LYMPH # 1.1 10*3/uL (1.3-4.4); LYMPH % 18.2 % (27.0-41.0); MEAN CELL VOLUME 86.8 fl (81.0-99.0); MEAN CORPUSCULAR HGB 27.5 pg (27.0-31.0); MEAN CORPUSCULAR HGB CONC 31.7 g/dl (33.0-37.0); MEAN PLATELET VOLUME 10.4 fl (9.6-12.3); MONO # 0.4 10*3/uL (0.1-1.0); MONO % 6.9 % (3.0-9.0); NEUT # 4.3 10*3/uL (2.3-7.9); NEUT % 70.8 % (47.0-73.0); PLATELET COUNT AUTOMATED 136 10*3/uL (130-400); RED CELL DISTRI WIDTH 18.5 % (0-14.5); WHITE BLOOD COUNT 6.1 10*3/uL (4.8-10.8)
[2016-08-12 06:51] LABS: BUN 16 mg/dl (7-24); CARBON DIOXIDE 27 mmol/L (21-32); CHLORIDE 109 mmol/L (98-107); EST GLOM FILT AFRICAN AMERICAN > 60 ml/min; GLUCOSE 129 mg/dL (65-99); MAGNESIUM 1.8 mg/dL (1.5-2.1); PHOSPHOROUS 2.2 mg/dL (2.5-4.9); POTASSIUM 4.5 mmol/L (3.5-5.1); SODIUM 145 mmol/L (136-145)
[2016-08-12 08:00] VITALS: BP 118/68
[2016-08-12 12:00] VITALS: BP 102/59
[2016-08-12 16:00] VITALS: BP 108/61
[2016-08-13] VITALS: BP 111/62
[2016-08-13 06:28] LABS: BUN 19 mg/dl (7-24); CARBON DIOXIDE 25 mmol/L (21-32); CHLORIDE 107 mmol/L (98-107); EST GLOM FILT AFRICAN AMERICAN > 60 ml/min; GLUCOSE 216 mg/dL (65-99); PHOSPHOROUS 2.5 mg/dL (2.5-4.9); POTASSIUM 4.7 mmol/L (3.5-5.1); SODIUM 142 mmol/L (136-145)
[2016-08-13 08:00] VITALS: BP 101/62
[2016-08-13 12:00] VITALS: BP 127/75
[2016-08-13 16:00] VITALS: BP 129/63
[2016-08-13 20:00] VITALS: BP 117/63
[2016-08-14] VITALS: BP 118/64
[2016-08-14 08:00] VITALS: BP 103/56
[2016-08-14 12:00] VITALS: BP 112/64
[2016-08-14] MEDS ORDERED: DILTIAZEM 24HR120 MG PO (12:55)
== END 2016-08-14 14:59 | disposition other institution (70) | DRG 177 ==
LOC: ED 08:42 → 5E 11:45 → EDHOLD 11:45 → 5E 12:15
PROVIDERS: Emergency Medicine; Internal Medicine; Internal Medicine Hospice and Palliative Medicine
PROC: BD1BYZZ Fluoroscopy of Mouth/Oropharynx using Other Contrast (ICD-10-PCS; principal; 2016-08-13)
DX: J69.0 Pneumonitis due to inhalation of food and vomit (principal); N17.0 Acute kidney failure with tubular necrosis; E43 Unspecified severe protein-calorie malnutrition; G93.41 Metabolic encephalopathy; I50.32 Chronic diastolic (congestive) heart failure; R65.10 Systemic inflammatory response syndrome (SIRS) of non-infectious origin without acute organ dysfunction; N39.0 Urinary tract infection, site not specified; K76.0 Fatty (change of) liver, not elsewhere classified; E83.42 Hypomagnesemia; G30.9 Alzheimer's disease, unspecified; F02.80 Dementia in other diseases classified elsewhere, unspecified severity, without behavioral disturbance, psychotic disturbance, mood disturbance, and anxiety; E66.09 Other obesity due to excess calories; F17.200 Nicotine dependence, unspecified, uncomplicated; E86.0 Dehydration; D72.810 Lymphocytopenia; J44.9 Chronic obstructive pulmonary disease, unspecified; E78.5 Hyperlipidemia, unspecified; K21.9 Gastro-esophageal reflux disease without esophagitis; E03.9 Hypothyroidism, unspecified; M51.36 Other intervertebral disc degeneration, lumbar region; E83.39 Other disorders of phosphorus metabolism; H91.93 Unspecified hearing loss, bilateral; K57.90 Diverticulosis of intestine, part unspecified, without perforation or abscess without bleeding; D64.9 Anemia, unspecified; Z87.440 Personal history of urinary (tract) infections; Z88.2 Allergy status to sulfonamides; Z79.84 Long term (current) use of oral hypoglycemic drugs; Z68.31 Body mass index [BMI] 31.0-31.9, adult; Z99.81 Dependence on supplemental oxygen; Z68.34 Body mass index [BMI] 34.0-34.9, adult

== ENCOUNTER 2016-09-09 20:42 | Inpatient (IN) | payer MEDICARE ==
[~2016-09-09] VITALS: Ht 160 cm; Wt 99.4 kg
--- NOTE | ~2016-09-09 | PR ---
[place], [place] PROGRESS NOTE [id number] #: [id number] ROOM: 509 DOCTOR: POONAM GRIFFIN MD,SADIE BIRTHDATE: [birth year] DOS: 09/19/2016 SUBJECTIVE: She has been resting comfortably in the bed. She has now been discharged to the nursing facility yesterday. The patient has not been noted to have any major changes of respiratory status or otherwise currently comfortably resting on the bed, using the BiPAP at nighttime. OBJECTIVE: VITAL SIGNS: Shows normal temperature, respiratory rate recorded as 18, heart rate of 65, blood pressure 140/55. HEENT: Showed no new change. NECK: Supple. CARDIOVASCULAR: S1 and S2 audible. LUNGS: The patient was noted without any wheeze or crackles at the present time. ABDOMEN: Soft, obese, nontender. EXTREMITIES: Shows edema. IMPRESSION: 1. Resolving acute hypercapnic and hypoxic respiratory failure at this time. 2. Acute tracheobronchitis exacerbation with chronic obstructive pulmonary disease improvement in the chest congestion, cough was noted post-bronchoscopy. 3. Metabolic alkalosis was noted as well. PLAN OF TREATMENT: No changes from the pulmonary standpoint. Discharge the patient to senior care facility, using BiPAP at nighttime and p.r.n. during the day. Continuation of the plan of management at this time as well. Usual care. SADIE LEVNI MD CM:PNTRANS 1059 1206 SADIE GRIFFIN MD 09/19/16 1207 interface
--- NOTE | ~2016-09-09 | PR ---
[place], [place] PROGRESS NOTE NAME: [facility] [id number] UNIT #: [id number] ROOM: [facility] DOCTOR: POONAM GRIFFIN MD,SADIE BIRTHDATE: [birth year] DOS: 09/14/2016 SUBJECTIVE: She is n.p.o. past midnight for bronchoscopy, still noted severe excessive chest congestion and coughing without any sputum expectoration. Shortness of breath was noted stable. She has been noted n.p.o. past midnight for bronchoscopy. She has not been noted any other acute new symptoms at this time. Shortness of breath which she had described at rest. OBJECTIVE: VITAL SIGNS: Normal temperature, respiratory rate 20, heart rate 76, blood pressure 136/82. Pulse oxygen saturation on 3 liters of nasal cannula 96% saturation recorded. HEENT: Chronic severe obesity. NECK: Supple. CARDIOVASCULAR: S1, S2 audible. LUNGS: General reduction in breath sounds. The patient noted with expiratory wheezing. There were no crackles. ABDOMEN: Soft, nontender and obese. EXTREMITIES: Showed no edema. LABORATORY DATA: CBC: Hemoglobin 9.7, hematocrit 32.7, platelet count were normal, WBC count normal. IMPRESSION: Persistent acute exacerbation of chronic obstructive pulmonary disease, acute tracheobronchitis, nonresolving cough secondary to mucous impaction, major airway, n.p.o. for bronchoscopy, chronic obesity with history of dementia. PLAN OF TREATMENT: Proceed with the bronchoscopy. No major change in treatment at this time will be necessary. Any modification in treatment if necessary will be done after bronchoscopy. SADIE LEVIN MD CM:PNTRANS [phone] SADIE GRIFFIN MD 09/14/16 1625 interface
--- NOTE | ~2016-09-09 | PROC NOTE ---
[place], [place] PROCEDURE NOTE [id number] #: [id number] [facility] DOCTOR: POONAM GRIFFIN MD,SADIE BIRTHDATE: [birth year] DOS: 09/14/2016 PREOPERATIVE DIAGNOSES: Ineffective cough for this patient which was noted severe to expectorate sputum. Continuous wheezing as well. POSTOPERATIVE DIAGNOSES: Removal of large thick plugs of the mucus from the endobronchial tree bilaterally. PROCEDURE DESCRIPTION: Informed consent was obtained from the patient's daughter. The patient was brought to the OR. Conscious sedation was administered by the Anesthesia Department. After achieving proper sedation, airway introduced into the mouth. Bronchoscope advanced into the airway into the laryngeal area. Epiglottis and vocal cords were seen. The vocal cords were moving symmetrically with the movement. Bronchoscope advanced to the vocal cord and tracheal lumen. Tracheal lumen was identified. A moderate amount of thick mucus secretion was present, which was suctioned out with the help of normal saline wash. The gwendolyn was seen. Right upper, right middle, right lower, left upper, lingula, and lower lobe bronchial opening were all seen. Large thick mucus plugs of endobronchial tree bilaterally suctioned out with the help of normal saline wash and sent for culture. Procedure was well tolerated by the patient without any difficulty. Postoperative findings were discussed with the patient's daughter in detail as well. SADIE LEVIN MD CM:PROCNOTE:PROCEDURE NOTE 1033 1630 SADIE GRIFFIN MD
--- NOTE | ~2016-09-09 | PR ---
[place], [place] PROGRESS NOTE NAME: CARROLL FOY [facility] #: [id number] UNIT #: [id number] ROOM: [facility] DOCTOR: POONAM GRIFFIN MD,SADIE BIRTHDATE: [birth year] DOS: 09/17/2016 PULMONARY FOLLOWUP SUBJECTIVE: She has been noted with some change in mental status on Saturday after bronchoscopy. The arterial blood gas was done, which showed worsening hypercapnia. She was started on the BiPAP, which seemed to be well tolerated by the patient. Improved mental status has been noted, close to normal in the last 48 hours. She was noted awake and alert this morning. She has noted chronic hearing loss, which is moderate. OBJECTIVE: VITAL SIGNS: For the patient which has been recorded shows vital signs normal temperature to 99.8 degrees Fahrenheit, respiratory rate 22, heart rate of 42-55, blood pressure 122/56. Pulse oxygen saturation noted 30% oxygen and the BiPAP was 98% saturation. HEENT: Examination shows chronic obesity. NECK: Supple and obese. CARDIOVASCULAR: S1, S2 audible. LUNGS: The patient was noted without any wheezing or crackles at the present time. Breath sounds noted mildly decreased bilaterally without any wheezing. ABDOMEN: Soft, nontender. Bowel sounds present. LABORATORY DATA: CBC for this morning shows hemoglobin 10, hematocrit 31.6, WBC count normal, platelet count was normal. The PT/INR were noted at 2.8, which is therapeutic. BMP this morning, BUN 36, creatinine was normal, glucose 183. Carbon dioxide 33. Arterial blood gas, pH is 7.36, pCO2 of 47, pO2 of 67 with 4 liters nasal cannula noted. IMPRESSION: 1. The patient with resolving acute on chronic hypercapnic hypoxic respiratory failure with acute exacerbation of chronic obstructive pulmonary disease, significant improvement noted in the cough with the bronchoscopy. Culture results of the bronchial washing were noted as normal elvis. 2. Severe debility and multiple other medical problems. PLAN OF TREATMENT: Reduce Solu-Medrol to 40 mg IV b.i.d. Continuation of the bronchodilator with the oxygen supplementation. Discontinuation of the vancomycin and Levaquin based on the current culture results. Continue use of BiPAP as tolerated. Physical therapy and occupation therapy as a plan of management as in progress. Usual care. Other supportive plan of therapy and care. [place], [place] PROGRESS NOTE NAME: CARROLL FOY UNIT #: [id number] ROOM: [facility] DOCTOR: POONAM GRIFFIN MD,SADIE BIRTHDATE: [birth year] SADIE LEVIN MD CM:PNTRANS [id number] SADIE GRIFFIN MD 09/17/16 1232 interface
--- NOTE | ~2016-09-09 | PROC NOTE ---
[place], [place] PROCEDURE NOTE [id number] UNIT #: [id number] ROOM: [facility] DOCTOR: SUSAN MILLER DO BIRTHDATE: [birth year] DOS: 09/15/2016 TIME: 1747 hours. INDICATION: Intravenous access. RESIDENT: Susan Miller DO. SUPERVISING RESIDENT: Paramjit Cerda DO. ATTENDING SURGEON: Pb Davis DO. DESCRIPTION OF PROCEDURE: A timeout was completed, verifying correct patient, procedure, site, positioning, and special equipment necessary. The patient was placed in a dependent position appropriate for central line placement. The patient's right neck was prepped and draped in a sterile fashion. A 1% lidocaine was used to anesthetize the surrounding skin area. A triple lumen catheter was placed into the internal jugular using a Seldinger technique and with ultrasound guidance, the catheter was threaded smoothly over the guidewire and appropriate blood return was obtained. Each lumen of the catheter was evacuated of air and flushed with sterile saline. The catheter was then sutured in place to the skin and a sterile dressing applied. The supervising resident, Dr. Paramjit Cerda was present for the entire procedure. Estimated blood loss is negligible, less than 5 mL. The patient tolerated the procedure well. There were no complications. ATTESTATION I agree with the above documentation. The patient tolerated the procedure well. Minimal estimated blood loss. Susan Miller DO PB DAVIS DO CM:PROCNOTE:PROCEDURE NOTE [phone] SUSAN MILLER DO
--- NOTE | ~2016-09-09 | PR ---
[place], [place] PROGRESS NOTE NAME: CARROLL FOY [facility] #: [id number] UNIT #: [id number] ROOM: 509 DOCTOR: POONAM GRIFFIN MD,SADIE BIRTHDATE: [birth year] DOS: 09/18/2016 SUBJECTIVE: She has been noted comfortable at this time without any distress. The patient has been comfortably resting in the BiPAP intermittently. She does not have any symptoms and findings of chest congestion at this time or any distress. OBJECTIVE: VITAL SIGNS: Showed normal temperature, respirations 18, heart rate 66, blood pressure 144/50. Pulse oxygen saturation of the patient noted on 3L nasal cannula 94% saturation. HEENT: Examination shows no acute change. NECK: Supple. CARDIOVASCULAR: S1 and S2 audible. LUNGS: The patient was noted without any crackles, rhonchi, or wheezing at this time. Breath sounds noted mildly decreased bilaterally. ABDOMEN: Soft and nontender. LABORATORY DATA: Vancomycin trough level today was noted as 15.6. Acid fast bacillus bronchial washing noted negative with pending final culture results. INR yesterday noted therapeutic 2.8. IMPRESSION: 1. Resolving acute on chronic hypercapnic and hypoxic respiratory failure, exacerbation of chronic obstructive pulmonary disease, gradually with current medical management. 2. Severe debility. 3. History of dementia. PLAN AND MANAGEMENT: No changes in the plan of management at this time. Continue the patient on current therapy as previously in progress per usual care. Supportive therapy, plan of management and other treatment as well. SADIE LEVIN MD CM:PNTRANS [phone] SADIE GRIFFIN MD 09/18/16 1238 interface
[2016-09-09 20:42] VITALS: BP 124/52
[~2016-09-09 20:42] MED LIST changes: +DILTIAZEM 24HR120 MG PO
[2016-09-09 21:09] LABS: BASO # 0.1 10*3/uL (0.0-0.1); BASO % 0.5 % (0.0-1.0); EOS # 0.1 10*3/uL (0.0-0.4); EOS % 0.7 % (1.0-4.0); HEMATOCRIT 36.1 % (37.0-47.0); HEMOGLOBIN 11.2 g/dl (12.0-16.0); LYMPH % 20.2 % (27.0-41.0); MEAN CELL VOLUME 89.1 fl (81.0-99.0); MEAN CORPUSCULAR HGB 27.7 pg (27.0-31.0); MEAN PLATELET VOLUME 10.6 fl (9.6-12.3); MONO # 0.6 10*3/uL (0.1-1.0); MONO % 6.3 % (3.0-9.0); NEUT # 7.2 10*3/uL (2.3-7.9); PLATELET COUNT AUTOMATED 321 10*3/uL (130-400); RED BLOOD COUNT 4.05 10*6/uL (4.10-5.10); RED CELL DISTRI WIDTH 19.9 % (0-14.5)
[2016-09-09 21:18] LABS: INTERNATIONAL NORM RATIO 1.1 (2.0-3.5)
[2016-09-09 21:29] LABS: ALBUMIN 2.2 gm/dl (3.1-4.5); ALKALINE PHOSPHATASE 101 U/L (45-117); BILIRUBIN, TOTAL 0.4 mg/dl (0.2-1.0); BUN 22 mg/dl (7-24); CARBON DIOXIDE 27 mmol/L (21-32); CHLORIDE 103 mmol/L (98-107); EST GLOM FILT AFRICAN AMERICAN > 60 ml/min; GLUCOSE 100 mg/dL (65-99); MAGNESIUM 1.3 mg/dL (1.5-2.1); POTASSIUM 3.9 mmol/L (3.5-5.1); SGOT/AST 10 IU/L (3-35); SGPT/ALT 12 U/L (12-78); SODIUM 140 mmol/L (136-145); TOTAL PROTEIN 6.3 gm/dL (6.4-8.2)
[2016-09-09 21:30] LABS: CKMB 0.6 ng/ml (0.5-3.6)
[2016-09-09] MEDS ORDERED: NAMENDA-5 PO (21:32)
[2016-09-09 21:34] LABS: TROPONIN I < 0.015 ng/ml (<0.045)
[2016-09-09] MEDS ORDERED: VITAMIN C500 M4 PO (21:35)
[2016-09-09] MEDS ORDERED: ZINC OXIDE57 GM T (21:35)
[2016-09-09] MEDS ORDERED: MULTIPLE VITAMI1 TA5 PO (21:37)
[2016-09-09] MEDS ORDERED: ZINC-220220 MG PO (21:38)
[2016-09-09] MEDS ORDERED: ARICEPT10 M1 PO ×2 (21:54→22:00)
[2016-09-09] MEDS ORDERED: ANTACID PO (21:56)
[2016-09-09] MEDS ORDERED: DUONEB 3 MG/3 ML3 M1 INH (21:58)
[2016-09-09] MEDS ORDERED: TYLENOL325 M1 PO (22:02)
[2016-09-09 22:30] VITALS: BP 122/65
[2016-09-09 23:07] LABS: LA>2 REFLEX 2 HR DRAW NOW
[2016-09-09 23:28] VITALS: BP 115/73
[2016-09-10 00:07] LABS: ABG BASE EXCESS 4.9 mmol/L (-2.0-2.0); ABG CO2 CONTENT 31.7 mmol/L (23-27); ABG HCO3 30.2 mmol/l (22-26); ARTERIAL BLOOD GAS PH 7.403 (7.35-7.45); ARTERIAL BLOOD GAS PO2 64.4 mmHg (80-90)
[2016-09-10 01:25] VITALS: BP 123/63
[2016-09-10 03:45] VITALS: BP 106/37
[2016-09-10] MEDS ORDERED: NAMENDA10 MG PO (04:43)
[2016-09-10] MEDS ORDERED: NAMENDA-5 PO (04:44)
[2016-09-10 04:59] LABS: BILIRUBIN NEGATIVE (NEGATIVE); BLOOD NEGATIVE (NEGATIVE); CLARITY CLEAR (CLEAR); COLOR YELLOW (YELLOW); GLUCOSE NEGATIVE (NEGATIVE); KETONE NEGATIVE (NEGATIVE); LEUKO ESTERASE TRACE (NEGATIVE); NITRITE POSITIVE (NEGATIVE); PROTEIN NEGATIVE (NEGATIVE); SPECIFIC GRAVITY <= 1.005 (1.005-1.030); UROBILINOGEN 0.2 E.U./dl (0.2-1.0)
[2016-09-10 05:05] LABS: BACTERIA 4+
[2016-09-10 07:15] LABS: BASO % 0.3 % (0.0-1.0); EOS % 0.2 % (1.0-4.0); HEMATOCRIT 34.8 % (37.0-47.0); IG # 0.1 10*3/uL (0.0-0.1); LYMPH # 1.8 10*3/uL (1.3-4.4); LYMPH % 13.7 % (27.0-41.0); MEAN CELL VOLUME 88.3 fl (81.0-99.0); MEAN CORPUSCULAR HGB 27.9 pg (27.0-31.0); MEAN CORPUSCULAR HGB CONC 31.6 g/dl (33.0-37.0); MEAN PLATELET VOLUME 10.7 fl (9.6-12.3); MONO # 0.8 10*3/uL (0.1-1.0); MONO % 5.9 % (3.0-9.0); NEUT # 10.1 10*3/uL (2.3-7.9); NEUT % 79.5 % (47.0-73.0); PLATELET COUNT AUTOMATED 310 10*3/uL (130-400); RED BLOOD COUNT 3.94 10*6/uL (4.10-5.10); RED CELL DISTRI WIDTH 19.5 % (0-14.5); WHITE BLOOD COUNT 12.8 10*3/uL (4.8-10.8)
[2016-09-10 07:27] LABS: CKMB 0.6 ng/ml (0.5-3.6)
[2016-09-10 07:42] LABS: HEMOGLOBIN A1c 6.4 % (4.8-5.6)
[2016-09-10 07:43] LABS: BUN 21 mg/dl (7-24); CARBON DIOXIDE 33 mmol/L (21-32); CHLORIDE 100 mmol/L (98-107); CHOLESTEROL 159 mg/dL (<200); EST GLOM FILT AFRICAN AMERICAN > 60 ml/min; FREE T4 1.65 ng/dl (0.76-1.46); GLUCOSE 83 mg/dL (65-99); HDL CHOLESTEROL 41 mg/dl (40-60); LDL CHOLESTEROL 97 mg/dL (9-159); MAGNESIUM 1.4 mg/dL (1.5-2.1); PHOSPHOROUS 3.8 mg/dL (2.5-4.9); POTASSIUM 3.6 mmol/L (3.5-5.1); SODIUM 141 mmol/L (136-145); TRIGLYCERIDES 104 mg/dl (<150); VLDL CHOLESTEROL 21 mg/dL (6-40)
[2016-09-10 07:44] LABS: INTERNATIONAL NORM RATIO 1.2 (2.0-3.5); PROTHROMBIN TIME 12.6 SECONDS (9.0-12.4)
[2016-09-10 08:00] VITALS: BP 113/51
[2016-09-10 09:03] LABS: VITAMIN D, 25-HYDROXY 82.9 ng/mL (30-100)
[2016-09-10 09:04] LABS: FOLIC ACID 7.71 ng/mL (>5.38)
[2016-09-10 12:00] VITALS: BP 120/50
[2016-09-10 12:46] LABS: CKMB < 0.5 ng/ml (0.5-3.6); CPK 13 U/L (26-192)
[2016-09-10 16:00] VITALS: BP 120/65
[2016-09-10 18:23] LABS: CPK 12 U/L (26-192)
[2016-09-10 18:25] LABS: CKMB < 0.5 ng/ml (0.5-3.6)
[2016-09-10 20:00] VITALS: BP 116/60
[2016-09-11] VITALS (7 sets, daily range): BP systolic 93–146; BP diastolic 35–93
[2016-09-11 05:52] LABS: BASO % 0.1 % (0.0-1.0); HEMATOCRIT 31.9 % (37.0-47.0); HEMOGLOBIN 10.2 g/dl (12.0-16.0); IG # 0.1 10*3/uL (0.0-0.1); LYMPH # 0.9 10*3/uL (1.3-4.4); LYMPH % 12.3 % (27.0-41.0); MEAN CELL VOLUME 87.2 fl (81.0-99.0); MEAN CORPUSCULAR HGB 27.9 pg (27.0-31.0); MEAN PLATELET VOLUME 10.6 fl (9.6-12.3); MONO # 0.1 10*3/uL (0.1-1.0); MONO % 1.6 % (3.0-9.0); NEUT # 6.4 10*3/uL (2.3-7.9); NEUT % 85.3 % (47.0-73.0); PLATELET COUNT AUTOMATED 266 10*3/uL (130-400); RED BLOOD COUNT 3.66 10*6/uL (4.10-5.10); WHITE BLOOD COUNT 7.5 10*3/uL (4.8-10.8)
[2016-09-11 06:27] LABS: ALBUMIN 1.9 gm/dl (3.1-4.5); ALKALINE PHOSPHATASE 88 U/L (45-117); BILIRUBIN, TOTAL 0.3 mg/dl (0.2-1.0); BUN 23 mg/dl (7-24); CARBON DIOXIDE 28 mmol/L (21-32); CHLORIDE 103 mmol/L (98-107); EST GLOM FILT AFRICAN AMERICAN > 60 ml/min; GLUCOSE 179 mg/dL (65-99); MAGNESIUM 1.2 mg/dL (1.5-2.1); PHOSPHOROUS 3.5 mg/dL (2.5-4.9); POTASSIUM 3.8 mmol/L (3.5-5.1); SGOT/AST 12 IU/L (3-35); SGPT/ALT 12 U/L (12-78); SODIUM 140 mmol/L (136-145); TOTAL PROTEIN 5.8 gm/dL (6.4-8.2)
[2016-09-12] VITALS: BP 92/43
[2016-09-12 03:29] VITALS: BP 108/53
[2016-09-12 05:53] LABS: BUN 23 mg/dl (7-24); CARBON DIOXIDE 30 mmol/L (21-32); CHLORIDE 105 mmol/L (98-107); EST GLOM FILT AFRICAN AMERICAN > 60 ml/min; GLUCOSE 154 mg/dL (65-99); MAGNESIUM 1.4 mg/dL (1.5-2.1); PHOSPHOROUS 2.4 mg/dL (2.5-4.9); POTASSIUM 4.3 mmol/L (3.5-5.1); SODIUM 144 mmol/L (136-145)
[2016-09-12 05:55] LABS: VANCOMYCIN TROUGH 17.2 ug/mL (10-20)
[2016-09-12 06:05] LABS: BASO % 0.1 % (0.0-1.0); HEMATOCRIT 30.9 % (37.0-47.0); HEMOGLOBIN 9.6 g/dl (12.0-16.0); IG # 0.1 10*3/uL (0.0-0.1); LYMPH # 0.9 10*3/uL (1.3-4.4); LYMPH % 7.2 % (27.0-41.0); MEAN CELL VOLUME 88.8 fl (81.0-99.0); MEAN CORPUSCULAR HGB 27.6 pg (27.0-31.0); MEAN CORPUSCULAR HGB CONC 31.1 g/dl (33.0-37.0); MEAN PLATELET VOLUME 10.9 fl (9.6-12.3); MONO # 0.4 10*3/uL (0.1-1.0); NEUT # 11.6 10*3/uL (2.3-7.9); PLATELET COUNT AUTOMATED 275 10*3/uL (130-400); RED BLOOD COUNT 3.48 10*6/uL (4.10-5.10); RED CELL DISTRI WIDTH 19.6 % (0-14.5)
[2016-09-12 08:00] VITALS: BP 102/63
[2016-09-12 12:00] VITALS: BP 98/54
[2016-09-12 16:06] VITALS: BP 104/46
[2016-09-12 20:00] VITALS: BP 129/62
[2016-09-13] VITALS (7 sets, daily range): BP systolic 112–145; BP diastolic 59–76
[2016-09-13 05:49] LABS: BUN 23 mg/dl (7-24); CARBON DIOXIDE 26 mmol/L (21-32); CHLORIDE 108 mmol/L (98-107); EST GLOM FILT AFRICAN AMERICAN > 60 ml/min; GLUCOSE 151 mg/dL (65-99); MAGNESIUM 1.9 mg/dL (1.5-2.1); PHOSPHOROUS 2.4 mg/dL (2.5-4.9); POTASSIUM 4.5 mmol/L (3.5-5.1); SODIUM 140 mmol/L (136-145)
[2016-09-13 06:02] LABS: BASO % 0.1 % (0.0-1.0); HEMATOCRIT 31.3 % (37.0-47.0); HEMOGLOBIN 9.5 g/dl (12.0-16.0); IG # 0.1 10*3/uL (0.0-0.1); LYMPH # 0.9 10*3/uL (1.3-4.4); LYMPH % 9.3 % (27.0-41.0); MEAN CELL VOLUME 90.5 fl (81.0-99.0); MEAN CORPUSCULAR HGB 27.5 pg (27.0-31.0); MEAN CORPUSCULAR HGB CONC 30.4 g/dl (33.0-37.0); MEAN PLATELET VOLUME 11.1 fl (9.6-12.3); MONO # 0.3 10*3/uL (0.1-1.0); MONO % 3.3 % (3.0-9.0); NEUT # 8.5 10*3/uL (2.3-7.9); NEUT % 86.2 % (47.0-73.0); PLATELET COUNT AUTOMATED 282 10*3/uL (130-400); RED BLOOD COUNT 3.46 10*6/uL (4.10-5.10); RED CELL DISTRI WIDTH 19.6 % (0-14.5); WHITE BLOOD COUNT 9.9 10*3/uL (4.8-10.8)
[2016-09-14] VITALS (10 sets, daily range): BP systolic 121–167; BP diastolic 53–97
[2016-09-14 05:52] LABS: HEMATOCRIT 32.3 % (37.0-47.0); HEMOGLOBIN 9.7 g/dl (12.0-16.0); IG # 0.2 10*3/uL (0.0-0.1); LYMPH # 0.7 10*3/uL (1.3-4.4); LYMPH % 9.3 % (27.0-41.0); MEAN CELL VOLUME 90.5 fl (81.0-99.0); MEAN CORPUSCULAR HGB 27.2 pg (27.0-31.0); MEAN PLATELET VOLUME 11.4 fl (9.6-12.3); MONO # 0.3 10*3/uL (0.1-1.0); MONO % 3.7 % (3.0-9.0); NEUT # 6.3 10*3/uL (2.3-7.9); NEUT % 84.6 % (47.0-73.0); PLATELET COUNT AUTOMATED 280 10*3/uL (130-400); RED BLOOD COUNT 3.57 10*6/uL (4.10-5.10); RED CELL DISTRI WIDTH 19.5 % (0-14.5); WHITE BLOOD COUNT 7.5 10*3/uL (4.8-10.8)
[2016-09-14 12:37] LABS: ABG BASE EXCESS -1.9 mmol/L (-2.0-2.0); ABG CO2 CONTENT 26.7 mmol/L (23-27); ABG TEMPERATURE 97.7 F (98.0-99.0); ARTERIAL BLOOD GAS PH 7.282 (7.35-7.45); ARTERIAL BLOOD GAS PO2 76.3 mmHg (80-90)
[2016-09-14 15:17] LABS: ABG CO2 CONTENT 26.3 mmol/L (23-27); ABG HCO3 24.8 mmol/l (22-26); ABG TEMPERATURE 97.7 F (98.0-99.0); ARTERIAL BLOOD GAS PH 7.331 (7.35-7.45)
[2016-09-15] VITALS (7 sets, daily range): BP systolic 107–141; BP diastolic 52–70
[2016-09-15 06:04] LABS: ALBUMIN 1.9 gm/dl (3.1-4.5); ALKALINE PHOSPHATASE 126 U/L (45-117); BILIRUBIN, TOTAL 0.3 mg/dl (0.2-1.0); BUN 26 mg/dl (7-24); CARBON DIOXIDE 28 mmol/L (21-32); CHLORIDE 108 mmol/L (98-107); EST GLOM FILT AFRICAN AMERICAN > 60 ml/min; GLUCOSE 164 mg/dL (65-99); MAGNESIUM 1.7 mg/dL (1.5-2.1); PHOSPHOROUS 2.6 mg/dL (2.5-4.9); POTASSIUM 4.6 mmol/L (3.5-5.1); SGOT/AST 23 IU/L (3-35); SGPT/ALT 54 U/L (12-78); SODIUM 141 mmol/L (136-145); TOTAL PROTEIN 5.2 gm/dL (6.4-8.2); VANCOMYCIN TROUGH 16.7 ug/mL (10-20)
[2016-09-15 06:08] LABS: HEMATOCRIT 32.2 % (37.0-47.0); HEMOGLOBIN 9.8 g/dl (12.0-16.0); IG # 0.1 10*3/uL (0.0-0.1); LYMPH # 0.5 10*3/uL (1.3-4.4); LYMPH % 8.5 % (27.0-41.0); MEAN CELL VOLUME 90.2 fl (81.0-99.0); MEAN CORPUSCULAR HGB 27.5 pg (27.0-31.0); MEAN CORPUSCULAR HGB CONC 30.4 g/dl (33.0-37.0); MEAN PLATELET VOLUME 10.8 fl (9.6-12.3); MONO # 0.4 10*3/uL (0.1-1.0); MONO % 5.7 % (3.0-9.0); NEUT # 5.2 10*3/uL (2.3-7.9); PLATELET COUNT AUTOMATED 265 10*3/uL (130-400); RED BLOOD COUNT 3.57 10*6/uL (4.10-5.10); RED CELL DISTRI WIDTH 19.4 % (0-14.5); WHITE BLOOD COUNT 6.2 10*3/uL (4.8-10.8)
[2016-09-15 14:06] LABS: ACID FAST SPEC PROCESSING Concentration (.)
[2016-09-15 17:27] LABS: ABG BASE EXCESS 1.1 mmol/L (-2.0-2.0); ABG HCO3 26.5 mmol/l (22-26); ABG TEMPERATURE 97.7 F (98.0-99.0); ARTERIAL BLOOD GAS PH 7.362 (7.35-7.45); ARTERIAL BLOOD GAS PO2 67.4 mmHg (80-90)
[2016-09-16 00:09] VITALS: BP 105/50
[2016-09-16 04:11] VITALS: BP 130/66
[2016-09-16 05:56] LABS: HEMATOCRIT 32.2 % (37.0-47.0); HEMOGLOBIN 9.8 g/dl (12.0-16.0); IG # 0.1 10*3/uL (0.0-0.1); LYMPH # 0.6 10*3/uL (1.3-4.4); LYMPH % 8.2 % (27.0-41.0); MEAN CELL VOLUME 90.2 fl (81.0-99.0); MEAN CORPUSCULAR HGB 27.5 pg (27.0-31.0); MEAN CORPUSCULAR HGB CONC 30.4 g/dl (33.0-37.0); MEAN PLATELET VOLUME 11.2 fl (9.6-12.3); MONO # 0.3 10*3/uL (0.1-1.0); MONO % 4.2 % (3.0-9.0); NEUT # 6.8 10*3/uL (2.3-7.9); NEUT % 86.6 % (47.0-73.0); PLATELET COUNT AUTOMATED 265 10*3/uL (130-400); RED BLOOD COUNT 3.57 10*6/uL (4.10-5.10); RED CELL DISTRI WIDTH 19.1 % (0-14.5); WHITE BLOOD COUNT 7.8 10*3/uL (4.8-10.8)
[2016-09-16 06:02] LABS: BUN 30 mg/dl (7-24); CARBON DIOXIDE 30 mmol/L (21-32); CHLORIDE 104 mmol/L (98-107); EST GLOM FILT AFRICAN AMERICAN > 60 ml/min; GLUCOSE 165 mg/dL (65-99); SODIUM 141 mmol/L (136-145)
[2016-09-16 06:16] LABS: INTERNATIONAL NORM RATIO 1.2 (2.0-3.5); PROTHROMBIN TIME 13.3 SECONDS (9.0-12.4)
[2016-09-16 08:00] VITALS: BP 148/60
[2016-09-16 12:00] VITALS: BP 137/54
[2016-09-16 16:00] VITALS: BP 133/85
[2016-09-16 20:00] VITALS: BP 126/73
[2016-09-17] VITALS: BP 128/63
[2016-09-17 04:00] VITALS: BP 121/58
[2016-09-17 06:22] LABS: HEMATOCRIT 31.6 % (37.0-47.0); IG # 0.1 10*3/uL (0.0-0.1); LYMPH # 0.5 10*3/uL (1.3-4.4); LYMPH % 6.9 % (27.0-41.0); MEAN CORPUSCULAR HGB 27.9 pg (27.0-31.0); MEAN CORPUSCULAR HGB CONC 31.6 g/dl (33.0-37.0); MEAN PLATELET VOLUME 10.8 fl (9.6-12.3); MONO # 0.4 10*3/uL (0.1-1.0); MONO % 5.9 % (3.0-9.0); NEUT # 5.8 10*3/uL (2.3-7.9); NEUT % 86.4 % (47.0-73.0); PLATELET COUNT AUTOMATED 244 10*3/uL (130-400); RED BLOOD COUNT 3.59 10*6/uL (4.10-5.10); RED CELL DISTRI WIDTH 18.6 % (0-14.5); WHITE BLOOD COUNT 6.7 10*3/uL (4.8-10.8)
[2016-09-17 06:49] LABS: INTERNATIONAL NORM RATIO 2.8 (2.0-3.5); PROTHROMBIN TIME 31.1 SECONDS (9.0-12.4)
[2016-09-17 06:55] LABS: BUN 36 mg/dl (7-24); CARBON DIOXIDE 33 mmol/L (21-32); CHLORIDE 101 mmol/L (98-107); EST GLOM FILT AFRICAN AMERICAN > 60 ml/min; GLUCOSE 183 mg/dL (65-99); POTASSIUM 3.9 mmol/L (3.5-5.1); SODIUM 140 mmol/L (136-145)
[2016-09-17 08:00] VITALS: BP 122/56
[2016-09-17 12:00] VITALS: BP 117/50
[2016-09-17 16:00] VITALS: BP 132/66
[2016-09-17 20:00] VITALS: BP 140/73
[2016-09-18] VITALS: BP 140/77
[2016-09-18 08:00] VITALS: BP 146/50
[2016-09-18 12:00] VITALS: BP 154/63
[2016-09-18] MEDS ORDERED: LEVAQUIN500 M2 PO (12:20)
[2016-09-18] MEDS ORDERED: LASIX40 MG PO (12:22)
[2016-09-18] MEDS ORDERED: COUMADIN5 M2 PO (12:22)
[2016-09-18] MEDS ORDERED: PREDNISONE10 MG PO (12:23)
[2016-09-18] MEDS ORDERED: BIPAP (13:33)
[2016-09-18 16:00] VITALS: BP 153/83
[2016-09-18 20:00] VITALS: BP 160/75
[2016-09-19] VITALS: BP 124/60
[2016-09-19 06:32] LABS: HEMATOCRIT 32.9 % (37.0-47.0); HEMOGLOBIN 10.5 g/dl (12.0-16.0); IG # 0.2 10*3/uL (0.0-0.1); LYMPH # 0.8 10*3/uL (1.3-4.4); LYMPH % 7.1 % (27.0-41.0); MEAN CELL VOLUME 87.3 fl (81.0-99.0); MEAN CORPUSCULAR HGB 27.9 pg (27.0-31.0); MEAN CORPUSCULAR HGB CONC 31.9 g/dl (33.0-37.0); MEAN PLATELET VOLUME 11.1 fl (9.6-12.3); MONO # 0.6 10*3/uL (0.1-1.0); MONO % 5.5 % (3.0-9.0); NEUT # 9.2 10*3/uL (2.3-7.9); NEUT % 85.7 % (47.0-73.0); PLATELET COUNT AUTOMATED 227 10*3/uL (130-400); RED BLOOD COUNT 3.77 10*6/uL (4.10-5.10); RED CELL DISTRI WIDTH 18.5 % (0-14.5); WHITE BLOOD COUNT 10.7 10*3/uL (4.8-10.8)
[2016-09-19 07:08] LABS: BUN 38 mg/dl (7-24); CARBON DIOXIDE 37 mmol/L (21-32); CHLORIDE 95 mmol/L (98-107); EST GLOM FILT AFRICAN AMERICAN > 60 ml/min; GLUCOSE 177 mg/dL (65-99); SODIUM 140 mmol/L (136-145)
[2016-09-19 08:00] VITALS: BP 148/55
[2016-09-19 12:00] VITALS: BP 123/61
[2016-09-19 16:00] VITALS: BP 151/75
== END 2016-09-19 20:13 | disposition other institution (70) | DRG 871 ==
LOC: ED 20:42 → EDHOLD 09-10 00:26 → 5E 09-10 00:26 → ICCU 09-10 00:26 → EDHOLD 09-10 01:13 → ICCU 09-10 02:37 → 5E 09-17 16:18
PROVIDERS: Emergency Medicine; Emergency Medicine Emergency Medical Services; Hospitalist; Internal Medicine; Internal Medicine Critical Care Medicine; Internal Medicine Nephrology; Student in an Organized Health Care Education/Training Program
PROC: 5A09457 Assistance with Respiratory Ventilation, 24-96 Consecutive Hours, Continuous Positive Airway Pressure (ICD-10-PCS; 2016-09-10)
PROC: 0BC68ZZ Extirpation of Matter from Right Lower Lobe Bronchus, Via Natural or Artificial Opening Endoscopic (ICD-10-PCS; principal; 2016-09-14)
PROC: 0BC58ZZ Extirpation of Matter from Right Middle Lobe Bronchus, Via Natural or Artificial Opening Endoscopic (ICD-10-PCS; principal; 2016-09-14)
PROC: 0BC48ZZ Extirpation of Matter from Right Upper Lobe Bronchus, Via Natural or Artificial Opening Endoscopic (ICD-10-PCS; principal; 2016-09-14)
PROC: 0BC88ZZ Extirpation of Matter from Left Upper Lobe Bronchus, Via Natural or Artificial Opening Endoscopic (ICD-10-PCS; principal; 2016-09-14)
PROC: 0BCB8ZZ Extirpation of Matter from Left Lower Lobe Bronchus, Via Natural or Artificial Opening Endoscopic (ICD-10-PCS; principal; 2016-09-14)
PROC: 0BC28ZZ Extirpation of Matter from Carina, Via Natural or Artificial Opening Endoscopic (ICD-10-PCS; principal; 2016-09-14)
PROC: 0BC98ZZ Extirpation of Matter from Lingula Bronchus, Via Natural or Artificial Opening Endoscopic (ICD-10-PCS; principal; 2016-09-14)
PROC: 02HV33Z Insertion of Infusion Device into Superior Vena Cava, Percutaneous Approach (ICD-10-PCS; 2016-09-15)
PROC: B548ZZA Ultrasonography of Superior Vena Cava, Guidance (ICD-10-PCS; 2016-09-15)
DX: A41.9 Sepsis, unspecified organism (principal); J96.21 Acute and chronic respiratory failure with hypoxia; E43 Unspecified severe protein-calorie malnutrition; E87.3 Alkalosis; J18.1 Lobar pneumonia, unspecified organism; I11.0 Hypertensive heart disease with heart failure; T17.890A Other foreign object in other parts of respiratory tract causing asphyxiation, initial encounter; I50.32 Chronic diastolic (congestive) heart failure; D71 Functional disorders of polymorphonuclear neutrophils; E83.42 Hypomagnesemia; J96.22 Acute and chronic respiratory failure with hypercapnia; J44.0 Chronic obstructive pulmonary disease with (acute) lower respiratory infection; N39.0 Urinary tract infection, site not specified; J44.1 Chronic obstructive pulmonary disease with (acute) exacerbation; I82.622 Acute embolism and thrombosis of deep veins of left upper extremity; K21.9 Gastro-esophageal reflux disease without esophagitis; R65.20 Severe sepsis without septic shock; D64.9 Anemia, unspecified; K57.90 Diverticulosis of intestine, part unspecified, without perforation or abscess without bleeding; K76.0 Fatty (change of) liver, not elsewhere classified; M51.36 Other intervertebral disc degeneration, lumbar region; F03.90 Unspecified dementia, unspecified severity, without behavioral disturbance, psychotic disturbance, mood disturbance, and anxiety; E78.5 Hyperlipidemia, unspecified; E03.9 Hypothyroidism, unspecified; E11.9 Type 2 diabetes mellitus without complications; F41.9 Anxiety disorder, unspecified; F32.9 Major depressive disorder, single episode, unspecified; Y95 Nosocomial condition; F17.200 Nicotine dependence, unspecified, uncomplicated; E66.09 Other obesity due to excess calories; E83.39 Other disorders of phosphorus metabolism; X58.XXXA Exposure to other specified factors, initial encounter; J20.9 Acute bronchitis, unspecified; Z88.2 Allergy status to sulfonamides; Z98.49 Cataract extraction status, unspecified eye; Z80.0 Family history of malignant neoplasm of digestive organs; Z79.1 Long term (current) use of non-steroidal anti-inflammatories (NSAID); Z79.899 Other long term (current) drug therapy; Z79.01 Long term (current) use of anticoagulants; Y93.89 Activity, other specified; Y92.89 Other specified places as the place of occurrence of the external cause; Y99.8 Other external cause status; Z68.33 Body mass index [BMI] 33.0-33.9, adult

== ENCOUNTER 2016-09-24 09:06 | Inpatient (IN) | payer MEDICARE ==
[2016-09-24] VITALS (11 sets, daily range): BP systolic 83–164; BP diastolic 44–85
[~2016-09-24] VITALS: Ht 160 cm; Wt 99.4 kg
--- NOTE | ~2016-09-24 | CON ---
[place], [place] REPORT OF CONSULTATION [id number] #: [id number] ROOM: [place] [address] DOCTOR: JOANN WHALEY MD BIRTHDATE: [birth year] DOS: 09/24/2016 REASON FOR CONSULTATION: Irregular heartbeat and rapid ventricular response. HISTORY OF PRESENT ILLNESS: The patient is a 75-year-old woman who is a [facility] resident with dementia. She is unable to provide any significant history. The history was obtained entirely from review of old records and discussion with nursing staff. She was recently hospitalized at the [facility] in 07/2016 when she presented with SIRS, acute exacerbation of chronic obstructive pulmonary disease, pneumonia and tachycardia. The patient's medications were adjusted. Her electrolytes were replaced and she was given fluid resuscitation. She was brought back to the hospital on this occasion because of dyspnea and hypotension and decreased level of consciousness. She was noted to be in a rapid irregular heartbeat at the time of admission. I was asked to review the electrocardiogram and she shows multiple different P-wave morphologies and a rapid irregular heartbeat consistent with multifocal atrial tachycardia. This is likely due to longstanding lung disease, respiratory failure and hypoxemia. Currently, the patient's heart rate is about 95. She is oxygenating at 94% with oxygen by nasal cannula. She is breathing easily and does not appear uncomfortable. PAST MEDICAL HISTORY: 1. 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 2. Chronic obstructive pulmonary disease. 3. Dementia. 4. Gastroesophageal reflux disease. 5. History of healthcare-associated pneumonia. 6. Hyperlipidemia. 7. Hypothyroidism. 8. Recurrent respiratory infections with hypoxemia and hypercapnia. 9. Protein calorie malnutrition. MEDICATIONS: Prior to admission, Advair 250/50 one puff b.i.d., DuoNeb by nebulizer q.6h., Combivent 2 puffs q.i.d., acetaminophen p.r.n., ascorbic acid 500 mg daily, vitamin D 5000 units daily, diltiazem CD 120 mg daily, donepezil 10 mg at bedtime, furosemide 40 mg daily, levofloxacin 500 mg daily, levothyroxine 150 mcg daily, antacid solution 30 mL q.4 hours p.r.n., Namenda 10 mg b.i.d., metformin 500 mg b.i.d., metoprolol 50 mg b.i.d., multivitamin daily, potassium 10 mEq b.i.d., ranitidine 150 mg daily, Risperdal 1 mg at bedtime, Ropinirole 1 mg at bedtime, warfarin 5 mg daily to maintain an INR between 2 and 3, zinc sulfate 240 mg b.i.d. and zinc oxide applied as needed. ALLERGIES: The patient lists allergies to SULFA DRUGS. REVIEW OF SYSTEMS: The patient is unable to provide review of systems. She is very lethargic at this point and does not answer any questions. FAMILY HISTORY: According to the chart, the patient's father of stomach [place], [place] REPORT OF CONSULTATION NAME: CARROLL FOY UNIT #: [id number] ROOM: [place] [address] DOCTOR: JOANN WHALEY MD BIRTHDATE: [birth year] cancer. The mother at age 85 of unknown causes. SOCIAL HISTORY: The patient is a [facility] resident. She does not consume alcohol or cigarettes. PHYSICAL EXAMINATION: GENERAL: The patient is an overweight white female who is arousable, but disoriented and does not answer questions appropriately. VITAL SIGNS: Pulse is 100 and somewhat irregular, blood pressure is 93/46. She is afebrile. She weighs 83.3 kg and has a body mass index of 32.5. HEENT: Normocephalic, atraumatic. Extraocular muscles are intact. Sclerae are clear. Pupils are round and reactive to light. The oral mucosa is moist. Tongue is midline. NECK: Supple. She has no jugular distention. She does not have any hepatojugular reflux. Carotids are full. I heard no bruits. LUNGS: Respirations are unlabored. She does have oxygen by nasal cannula only. Her lungs are clear anteriorly and laterally. CARDIOVASCULAR: Her heart has a somewhat irregular rhythm. She has a fourth heart sound, but no third heart sound. The PMI could not be felt. There is no precordial heave, lift or thrill. ABDOMEN: Obese, but otherwise benign, without masses, organomegaly, bruits or tenderness. EXTREMITIES: Showed no edema. Peripheral pulses are palpable in the feet. LABORATORY DATA: I reviewed her electrocardiogram, which showed multifocal atrial tachycardia with a rate of about 150. She has nonspecific ST and T-wave changes. No acute ST elevation is seen. Hemoglobin is 10.6, hematocrit 35.1. There are 12,700 white cells and 190,000 platelets present. INR is 6.6. Sodium is 146, potassium 3.6, chloride 102, CO2 36, BUN 28, creatinine 0.62, troponin levels are unremarkable, although they are measurable. The maximum troponin obtained so far is 0.020. No blood gases have been obtained thus far. IMPRESSIONS: 1. Multifocal atrial tachycardia, most likely triggered by underlying respiratory problems. 2. Chronic obstructive pulmonary disease. 3. History of recurrent pulmonary infections with respiratory failure. 4. Dementia. 5. Warfarin toxicity. 6. Obesity. PLAN: I would try as much as possible to control her rate with a calcium channel akua such as verapamil or diltiazem. At the present time, she does not appear to be in any heart failure and small dose of intravenous fluid may help us maintain her blood pressure appropriately. We will check blood gases to determine the status of her respiratory failure. She recently did have an echocardiogram on 09/10/2016 which showed normal left ventricular size with moderate concentric left ventricular hypertrophy, normal systolic function and [place], [place] REPORT OF CONSULTATION NAME: CARROLL FOY UNIT #: [id number] ROOM: [place] [address] DOCTOR: JOANN WHALEY MD BIRTHDATE: [birth year] wall motion, stage 1 diastolic relaxation abnormalities and mild valvular aortic stenosis. This will not be repeated on the current admission. I thank the hospitalist service and for asking our advice regarding her care. JOANN WHALEY MD CM:CONSTR:REPORT OF CONSULTATION 1628 09/24/161920 interface
--- NOTE | ~2016-09-24 | PR ---
[place], [place] PROGRESS NOTE [id number] UNIT #: [id number] ROOM: 419 DOCTOR: JOANN WHALEY MD BIRTHDATE: [birth year] DOS: 09/26/2016 PROGRESS NOTE. SUBJECTIVE: The patient was seen at her bedside today with family in attendance. 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 I saw her today, 09/26/2016 for followup. She is awake and alert, but does not respond to questioning appropriately. I note that her status has been changed to comfort care. When I entered the room, her family was feeding her and she seemed to be tolerating the feeding quite well without coughing. PHYSICAL EXAMINATION: VITAL SIGNS: Today, her pulse is 94 and regular, blood pressure is 136/61. She is afebrile. NECK: Supple. She has no jugular distention. LUNGS: Respirations are unlabored. Her chest has decreased breath sounds at the bases, but there are no wheezes or rales. HEART: Has a regular rhythm with an occasional premature beat. There is a fourth heart sound, but no third heart sound. The PMI could not be felt. ABDOMEN: Obese, but otherwise benign. EXTREMITIES: Showed no significant edema. IMPRESSION: 1. Multifocal atrial tachycardia. This has resolved as the patient's breathing has stabilized. 2. Chronic obstructive pulmonary disease. 3. History of recurrent pulmonary infections and respiratory failure. 4. Dementia. 5. Warfarin toxicity. The patient's INR now is therapeutic at 2.8. 6. Obesity. PLAN: No other cardiac workup or management changes are being planned. We will remain available to see her as needed, but will sign off for now. We thank the hospitalist group for asking our advice regarding her care. [place], [place] PROGRESS NOTE NAME: CARROLL FOY UNIT #: [id number] ROOM: 419 DOCTOR: JOANN WHALEY MD BIRTHDATE: [birth year] JOANN WHALEY MD CM:PNTRANS [phone] JOANN WHALEY MD 09/26/162223 interface
--- NOTE | ~2016-09-24 | PR ---
[place], [place] PROGRESS NOTE NAME: CARROLL FOY [facility] #: [id number] UNIT #: [id number] ROOM: [place] [address] DOCTOR: JOANN WHALEY MD BIRTHDATE: [birth year] DOS: SUBJECTIVE: The patient was seen today in the Intensive Care Unit at her bedside for followup of multifocal atrial tachycardia. No family was in attendance. The nursing staff reported that she was comfortable and that her heart rate had been better controlled. When I arrived, she was lying at a 30-degree angle and breathing easily with the Venturi mask. PHYSICAL EXAMINATION: VITAL SIGNS: Her pulse is 67 with an occasional premature beat. Blood pressure is 140/23, oxygen saturation is 99%. She is afebrile. NECK: Supple. She has no jugular distention. Carotids are full. LUNGS: Respirations are unlabored. Her chest has decreased breath sounds at the bases without wheezes or rales. HEART: Has a regular rhythm with an occasional premature beat. She has a fourth heart sound, but no third heart sound. The PMI could not be felt. There was no precordial heave, lift or thrill. ABDOMEN: Obese, but otherwise benign, without masses, organomegaly, bruits or tenderness. EXTREMITIES: Showed no significant edema. Peripheral pulses are palpable in the feet. LABORATORY DATA: Hemoglobin today is 10.5, white count is 12,900, platelet count 219,000. INR is still elevated at 7.1. Sodium is 145, potassium 3.3, BUN 28 and creatinine 0.51. IMPRESSION: 1. Multifocal atrial tachycardia has improved as the patient's breathing has stabilized. 2. Chronic obstructive pulmonary disease. 3. History of recurrent pulmonary infections with respiratory failure. 4. Dementia. 5. Warfarin toxicity. The patient does not have any obvious bleeding. 6. Obesity. PLAN: The patient's rate is much better controlled today with metoprolol p.o. She is being treated for respiratory infection with vancomycin and she is being diuresed as well. No other cardiac evaluation is planned at this time. We will continue to manage her empirically. As I mentioned in my initial consult, she might respond better to calcium channel akua than a beta akua, given her lung disease and multifocal atrial tachycardia, but thus far seems to be doing well with metoprolol. I thank the hospitalist group for asking our advice regarding her care. [place], [place] PROGRESS NOTE NAME: CARROLL FOY UNIT #: [id number] ROOM: [place] [address] DOCTOR: JOVANA DOWNEY,JOANN BIRTHDATE: [birth year] JOANN WHALEY MD CM:PNTRANS [phone] JOANN WHALEY MD 09/25/16 1450 interface
[~2016-09-24 09:06] MED LIST changes: +ANTACID PO; +BIPAP; +COUMADIN5 M2 PO; +DUONEB 3 MG/3 ML3 M1 INH; +MULTIPLE VITAMI1 TA5 PO; +NAMENDA-5 PO; +NAMENDA10 MG PO; +TYLENOL325 M1 PO; +VITAMIN C500 M4 PO; +ZINC OXIDE57 GM T; +ZINC-220220 MG PO
[2016-09-24 09:39] LABS: BASO % 0.1 % (0.0-1.0); EOS # 0.1 10*3/uL (0.0-0.4); EOS % 0.4 % (1.0-4.0); HEMATOCRIT 35.1 % (37.0-47.0); HEMOGLOBIN 10.6 g/dl (12.0-16.0); IG # 0.2 10*3/uL (0.0-0.1); LYMPH # 1.2 10*3/uL (1.3-4.4); LYMPH % 9.2 % (27.0-41.0); MEAN CELL VOLUME 91.9 fl (81.0-99.0); MEAN CORPUSCULAR HGB 27.7 pg (27.0-31.0); MEAN CORPUSCULAR HGB CONC 30.2 g/dl (33.0-37.0); MEAN PLATELET VOLUME 11.6 fl (9.6-12.3); MONO # 0.8 10*3/uL (0.1-1.0); NEUT # 10.6 10*3/uL (2.3-7.9); PLATELET COUNT AUTOMATED 190 10*3/uL (130-400); RED BLOOD COUNT 3.82 10*6/uL (4.10-5.10); RED CELL DISTRI WIDTH 19.5 % (0-14.5); WHITE BLOOD COUNT 12.7 10*3/uL (4.8-10.8)
[2016-09-24 09:44] LABS: BILIRUBIN NEGATIVE (NEGATIVE); BLOOD NEGATIVE (NEGATIVE); CLARITY SL CLOUDY (CLEAR); COLOR YELLOW (YELLOW); GLUCOSE NEGATIVE (NEGATIVE); KETONE TRACE (NEGATIVE); LEUKO ESTERASE TRACE (NEGATIVE); NITRITE NEGATIVE (NEGATIVE); PH 7.5 (5.0-9.0); PROTEIN TRACE (NEGATIVE); SPECIFIC GRAVITY 1.015 (1.005-1.030); UROBILINOGEN 0.2 E.U./dl (0.2-1.0)
[2016-09-24 09:53] LABS: BACTERIA 1+; RBC 0-2 rbc/hpf (0-2); URINE REFLEX COMMENT YES (NO)
[2016-09-24 09:55] LABS: PROTHROMBIN TIME 78.9 SECONDS (9.0-12.4)
[2016-09-24 09:57] LABS: ALBUMIN 2.3 gm/dl (3.1-4.5); ALKALINE PHOSPHATASE 89 U/L (45-117); BILIRUBIN, TOTAL 0.6 mg/dl (0.2-1.0); BUN 28 mg/dl (7-24); CARBON DIOXIDE 36 mmol/L (21-32); CHLORIDE 102 mmol/L (98-107); CPK 22 U/L (26-192); EST GLOM FILT AFRICAN AMERICAN > 60 ml/min; GLUCOSE 125 mg/dL (65-99); INTERNATIONAL NORM RATIO 6.6 (2.0-3.5); MAGNESIUM 1.5 mg/dL (1.5-2.1); POTASSIUM 3.6 mmol/L (3.5-5.1); SGOT/AST 18 IU/L (3-35); SGPT/ALT 26 U/L (12-78); SODIUM 146 mmol/L (136-145); TOTAL PROTEIN 5.6 gm/dL (6.4-8.2)
[2016-09-24 09:58] LABS: TROPONIN I 0.018 ng/ml (<0.045)
[2016-09-24 10:04] LABS: CKMB < 0.5 ng/ml (0.5-3.6)
[2016-09-24 16:48] LABS: ABG BASE EXCESS 12.6 mmol/L (-2.0-2.0); ABG HCO3 37.5 mmol/l (22-26); ABG TEMPERATURE 98.6 F (98.0-99.0); ARTERIAL BLOOD GAS PH 7.495 (7.35-7.45); ARTERIAL BLOOD GAS PO2 63.5 mmHg (80-90)
[2016-09-25] VITALS: BP 117/51
[2016-09-25 04:00] VITALS: BP 124/64
[2016-09-25 05:24] LABS: ALBUMIN 2.3 gm/dl (3.1-4.5); BILIRUBIN, TOTAL 0.7 mg/dl (0.2-1.0); BUN 28 mg/dl (7-24); CARBON DIOXIDE 38 mmol/L (21-32); CHLORIDE 99 mmol/L (98-107); CHOLESTEROL 218 mg/dL (<200); EST GLOM FILT AFRICAN AMERICAN > 60 ml/min; GLUCOSE 108 mg/dL (65-99); MAGNESIUM 1.3 mg/dL (1.5-2.1); PHOSPHOROUS 3.1 mg/dL (2.5-4.9); POTASSIUM 3.3 mmol/L (3.5-5.1); SGOT/AST 11 IU/L (3-35); SGPT/ALT 23 U/L (12-78); SODIUM 145 mmol/L (136-145); TOTAL PROTEIN 5.4 gm/dL (6.4-8.2); TRIGLYCERIDES 198 mg/dl (<150); VLDL CHOLESTEROL 40 mg/dL (6-40)
[2016-09-25 05:30] LABS: ALKALINE PHOSPHATASE 84 U/L (45-117); HDL CHOLESTEROL 53 mg/dl (40-60); LDL CHOLESTEROL 125 mg/dL (9-159)
[2016-09-25 06:14] LABS: BASO % 0.2 % (0.0-1.0); EOS # 0.2 10*3/uL (0.0-0.4); EOS % 1.8 % (1.0-4.0); HEMATOCRIT 34.2 % (37.0-47.0); HEMOGLOBIN 10.5 g/dl (12.0-16.0); IG # 0.1 10*3/uL (0.0-0.1); LYMPH # 1.3 10*3/uL (1.3-4.4); LYMPH % 9.8 % (27.0-41.0); MEAN CELL VOLUME 92.2 fl (81.0-99.0); MEAN CORPUSCULAR HGB 28.3 pg (27.0-31.0); MEAN CORPUSCULAR HGB CONC 30.7 g/dl (33.0-37.0); MEAN PLATELET VOLUME 11.5 fl (9.6-12.3); MONO # 0.8 10*3/uL (0.1-1.0); NEUT # 10.5 10*3/uL (2.3-7.9); NEUT % 81.3 % (47.0-73.0); PLATELET COUNT AUTOMATED 219 10*3/uL (130-400); RED BLOOD COUNT 3.71 10*6/uL (4.10-5.10); RED CELL DISTRI WIDTH 19.4 % (0-14.5); WHITE BLOOD COUNT 12.9 10*3/uL (4.8-10.8)
[2016-09-25 06:37] LABS: PROTHROMBIN TIME 85.3 SECONDS (9.0-12.4)
[2016-09-25 06:54] LABS: INTERNATIONAL NORM RATIO 7.1 (2.0-3.5)
[2016-09-25 07:16] LABS: HEMOGLOBIN A1c 6.5 % (4.8-5.6)
[2016-09-25 07:36] LABS: VITAMIN D, 25-HYDROXY 43.3 ng/mL (30-100)
[2016-09-25 07:37] LABS: FOLIC ACID 4.11 ng/mL (>5.38)
[2016-09-25 08:00] VITALS: BP 113/64
[2016-09-25 12:00] VITALS: BP 101/65
[2016-09-25 16:00] VITALS: BP 102/55
[2016-09-25 20:00] VITALS: BP 96/56
[2016-09-26] VITALS: BP 101/41
[2016-09-26 04:00] VITALS: BP 110/61
[2016-09-26 05:59] LABS: BASO % 0.2 % (0.0-1.0); EOS # 0.2 10*3/uL (0.0-0.4); HEMATOCRIT 33.3 % (37.0-47.0); HEMOGLOBIN 10.1 g/dl (12.0-16.0); IG # 0.1 10*3/uL (0.0-0.1); LYMPH # 1.2 10*3/uL (1.3-4.4); LYMPH % 10.5 % (27.0-41.0); MEAN CELL VOLUME 92.2 fl (81.0-99.0); MEAN CORPUSCULAR HGB CONC 30.3 g/dl (33.0-37.0); MEAN PLATELET VOLUME 11.2 fl (9.6-12.3); MONO # 0.6 10*3/uL (0.1-1.0); MONO % 5.2 % (3.0-9.0); NEUT # 9.4 10*3/uL (2.3-7.9); NEUT % 81.4 % (47.0-73.0); PLATELET COUNT AUTOMATED 211 10*3/uL (130-400); RED BLOOD COUNT 3.61 10*6/uL (4.10-5.10); RED CELL DISTRI WIDTH 18.8 % (0-14.5); WHITE BLOOD COUNT 11.6 10*3/uL (4.8-10.8)
[2016-09-26 06:06] LABS: INTERNATIONAL NORM RATIO 2.8 (2.0-3.5); PROTHROMBIN TIME 31.4 SECONDS (9.0-12.4)
[2016-09-26 06:08] LABS: BUN 26 mg/dl (7-24); CARBON DIOXIDE 38 mmol/L (21-32); CHLORIDE 101 mmol/L (98-107); EST GLOM FILT AFRICAN AMERICAN > 60 ml/min; GLUCOSE 129 mg/dL (65-99); POTASSIUM 3.1 mmol/L (3.5-5.1); SODIUM 144 mmol/L (136-145)
[2016-09-26 08:00] VITALS: BP 111/49
[2016-09-26 12:00] VITALS: BP 109/40
[2016-09-26 16:00] VITALS: BP 136/61
[2016-09-26 20:00] VITALS: BP 134/82
[2016-09-27] VITALS: BP 134/78
[2016-09-27 08:00] VITALS: BP 134/93
[2016-09-27 12:00] VITALS: BP 153/83
[2016-09-27 15:09] LABS: ORGANISM ID Not indicated. (.); SPECIMEN SOURCE Urine (.); STREPTOCOCCUS PNEUMONIAE AG Negative (Negative)
[2016-09-27 16:00] VITALS: BP 131/81
[2016-09-27 20:00] VITALS: BP 121/61
[2016-09-28] VITALS: BP 121/66
[2016-09-28 07:13] LABS: BASO % 0.1 % (0.0-1.0); EOS # 0.2 10*3/uL (0.0-0.4); EOS % 1.6 % (1.0-4.0); HEMOGLOBIN 10.4 g/dl (12.0-16.0); IG # 0.1 10*3/uL (0.0-0.1); LYMPH # 1.5 10*3/uL (1.3-4.4); LYMPH % 12.8 % (27.0-41.0); MEAN CELL VOLUME 90.7 fl (81.0-99.0); MEAN CORPUSCULAR HGB 28.6 pg (27.0-31.0); MEAN CORPUSCULAR HGB CONC 31.5 g/dl (33.0-37.0); MONO # 0.5 10*3/uL (0.1-1.0); MONO % 4.6 % (3.0-9.0); NEUT # 9.3 10*3/uL (2.3-7.9); PLATELET COUNT AUTOMATED 218 10*3/uL (130-400); RED BLOOD COUNT 3.64 10*6/uL (4.10-5.10); RED CELL DISTRI WIDTH 18.3 % (0-14.5); WHITE BLOOD COUNT 11.6 10*3/uL (4.8-10.8)
[2016-09-28 07:33] LABS: BUN 24 mg/dl (7-24); CARBON DIOXIDE 38 mmol/L (21-32); CHLORIDE 96 mmol/L (98-107); EST GLOM FILT AFRICAN AMERICAN > 60 ml/min; GLUCOSE 159 mg/dL (65-99); SODIUM 142 mmol/L (136-145)
[2016-09-28 08:00] VITALS: BP 147/61
[2016-09-28 09:01] LABS: PROTHROMBIN TIME 22.5 SECONDS (9.0-12.4)
[2016-09-28 12:00] VITALS: BP 125/61
[2016-09-28] MEDS ORDERED: PHARMASSURE FO0.4 MG PO (13:34)
[2016-09-28] MEDS ORDERED: MORPHINE S10 MG/5 M2 PO (13:34)
[2016-09-28] MEDS ORDERED: ATROPINE 1% OPHT5 M1 SL (13:34)
[2016-09-28] MEDS ORDERED: VERAPAMIL HCL80 MG PO (13:34)
[2016-09-28] MEDS ORDERED: ATIVAN1 MG PO (13:34)
[2016-09-28] MEDS ORDERED: COUMADIN3 M1 PO (13:34)
[2016-09-28] MEDS ORDERED: ZOFRAN ODT4 MG SL (13:34)
[2016-09-28] MEDS ORDERED: FLAGYL500 MG PO (13:34)
[2016-09-28 16:00] VITALS: BP 113/60
== END 2016-09-28 17:08 | disposition hospice, home (50) | DRG 871 ==
LOC: ED 09:06 → EDHOLD 10:36 → ICCU 10:36 → 4E 10:36 → 5E 11:06 → ICCU 14:22 → 4E 09-26 14:14
PROVIDERS: Family Medicine; Hospitalist; Internal Medicine Cardiovascular Disease; Internal Medicine Hospice and Palliative Medicine; Registered Nurse
DX: A41.9 Sepsis, unspecified organism (principal); J15.6 Pneumonia due to other Gram-negative bacteria; J96.21 Acute and chronic respiratory failure with hypoxia; E43 Unspecified severe protein-calorie malnutrition; G93.41 Metabolic encephalopathy; A04.7 Enterocolitis due to Clostridium difficile; F03.90 Unspecified dementia, unspecified severity, without behavioral disturbance, psychotic disturbance, mood disturbance, and anxiety; I50.9 Heart failure, unspecified; N39.0 Urinary tract infection, site not specified; J96.22 Acute and chronic respiratory failure with hypercapnia; I47.1 Supraventricular tachycardia; E66.9 Obesity, unspecified; Z66 Do not resuscitate; T45.515A Adverse effect of anticoagulants, initial encounter; I49.8 Other specified cardiac arrhythmias; Z51.5 Encounter for palliative care; J44.9 Chronic obstructive pulmonary disease, unspecified; E78.5 Hyperlipidemia, unspecified; K21.9 Gastro-esophageal reflux disease without esophagitis; E03.9 Hypothyroidism, unspecified; D64.9 Anemia, unspecified; Z79.01 Long term (current) use of anticoagulants; Z79.1 Long term (current) use of non-steroidal anti-inflammatories (NSAID); Z79.2 Long term (current) use of antibiotics; Z79.84 Long term (current) use of oral hypoglycemic drugs; Z79.899 Other long term (current) drug therapy; Z88.2 Allergy status to sulfonamides; Z98.49 Cataract extraction status, unspecified eye; Z80.0 Family history of malignant neoplasm of digestive organs; Z86.718 Personal history of other venous thrombosis and embolism; Y92.89 Other specified places as the place of occurrence of the external cause; Z68.32 Body mass index [BMI] 32.0-32.9, adult